=== PATIENT | female | born 1965 ===

== ENCOUNTER 2020-01-12 08:45 | Outpatient (REF) | payer OTHER, SELFPAY ==
[2020-01-12 09:21] LABS: MANUAL DIFF FLAG NO
[2020-01-12 09:25] LABS: Basophils Percent Auto 0.5 % (0-2); Hemoglobin 13.5 g/dl (12.0-16.0); Imm Gran Abs Auto 0.02 X10*3/uL (0.00-0.03); Imm Gran Pct Auto 0.3 % (0.0-0.4); Lymphocytes Absolute Auto 1.6 X10*3/uL (1.2-4.9); Lymphocytes Percent Auto 27.2 % (20-40); Mean Corpuscular HGB Conc 32.1 g/dl (31.0-35.0); Mean Corpuscular Hemoglobin 29.4 pg (27.0-33.0); Mean Corpuscular Volume 91.5 fL (80-98); Mean Platelet Volume 10.2 fL (9.4-12.3); Monocytes Absolute Auto 0.4 X10*3/uL (0.1-1.2); Monocytes Percent Auto 7.4 % (2-11); Neutrophils Absolute Auto 3.8 X10*3/uL (2.0-8.3); Neutrophils Percent Auto 64.6 % (45-73); Platelet Count 246 X10*3/uL (160-400); Red Blood Count 4.59 X10*6/uL (4.20-5.50); White Blood Count 5.9 X10*3/uL (4.8-10.8)
[2020-01-12 09:39] LABS: Estimated Average Glucose 120 mg/dL; Hemoglobin A1c % 5.8 %
[2020-01-12 09:55] LABS: Alanine Aminotransferase 25 U/L (0-31); Albumin Level 4.3 g/dL (3.5-5.0); Alkaline Phosphatase 93 U/L (39-117); Anion Gap 12 (12-20); Aspartate Amino Transferase 18 U/L (5-31); Bilirubin Total 0.4 mg/dL (0.0-1.0); Blood Urea Nitrogen 15 mg/dL (9-16); Calcium 9.3 mg/dL (8.4-10.2); Carbon Dioxide 28 mmol/L (22-29); Chloride 105 mmol/L (96-108); Cholesterol 234 mg/dL; Estimated Glomerular Filt Rate > 60; Glucose Random 99 mg/dL (60-115); HDL Cholesterol 63 mg/dL; LDL Cholesterol Calculated 152 mg/dl; Potassium 4.2 mmol/l (3.3-5.1); Sodium 141 mmol/L (135-145); Total Protein 7.7 g/dL (6.5-8.0); Triglycerides 99 mg/dL
[2020-01-12 10:19] LABS: Vitamin D 25-OH Total 24.1 ng/mL (>30)
[2020-01-12 10:32] LABS: Folate 11.7 ng/mL (> or = 4.0); Vitamin B12 445 pg/mL (200-900)
== END 2020-01-12 08:46 | disposition home or self-care (01) ==
LOC: HO.LAB 08:45
PROVIDERS: PCP Internal Medicine; Visit Provider Internal Medicine
DX: E78.00 Pure hypercholesterolemia, unspecified (principal); I10 Essential (primary) hypertension; E66.9 Obesity, unspecified; R73.01 Impaired fasting glucose; J30.9 Allergic rhinitis, unspecified
CPT/HCPCS: 36415; 80053; 80061; 82306; 82607; 82746; 83036; 84443; 85025

== ENCOUNTER 2020-04-13 08:19 | Outpatient (REF) | payer OTHER, SELFPAY ==
[2020-04-13 09:00] LABS: MANUAL DIFF FLAG NO
[2020-04-13 09:05] LABS: Basophils Percent Auto 0.4 % (0-2); Eosinophils Absolute Auto 0.1 X10*3/uL (0.0-0.4); Eosinophils Percent Auto 1.9 % (0-4); Hematocrit 41.1 % (37-47); Hemoglobin 13.3 g/dl (12.0-16.0); Imm Gran Abs Auto 0.02 X10*3/uL (0.00-0.03); Imm Gran Pct Auto 0.4 % (0.0-0.4); Lymphocytes Absolute Auto 1.7 X10*3/uL (1.2-4.9); Lymphocytes Percent Auto 29.2 % (20-40); Mean Corpuscular HGB Conc 32.4 g/dl (31.0-35.0); Mean Corpuscular Hemoglobin 29.5 pg (27.0-33.0); Mean Corpuscular Volume 91.1 fL (80-98); Mean Platelet Volume 10.7 fL (9.4-12.3); Monocytes Absolute Auto 0.4 X10*3/uL (0.1-1.2); Monocytes Percent Auto 7.7 % (2-11); Neutrophils Absolute Auto 3.5 X10*3/uL (2.0-8.3); Neutrophils Percent Auto 60.4 % (45-73); Platelet Count 240 X10*3/uL (160-400); Red Blood Count 4.51 X10*6/uL (4.20-5.50); Red Cell Distribution Width 14.1 % (11.0-16.0); White Blood Count 5.7 X10*3/uL (4.8-10.8)
[2020-04-13 09:19] LABS: Glucose Urine UA NEG (NEG); Leukocyte Esterase Urine NEG (NEG); Nitrite Urine NEG (NEG); PH 5.5 (5.0-8.0); Urine Blood 1+ (NEG); Urine Ketones NEG (NEG); Urine Protein NEG (NEG-TRACE)
[2020-04-13 09:31] LABS: Estimated Average Glucose 114 mg/dL; Hemoglobin A1c % 5.6 %
[2020-04-13 09:34] LABS: Alanine Aminotransferase 37 U/L (0-31); Albumin Level 4.3 g/dL (3.5-5.0); Alkaline Phosphatase 97 U/L (39-117); Anion Gap 11 (12-20); Aspartate Amino Transferase 27 U/L (5-31); Bilirubin Total 0.4 mg/dL (0.0-1.0); Blood Urea Nitrogen 25 mg/dL (9-16); Calcium 9.2 mg/dL (8.4-10.2); Carbon Dioxide 28 mmol/L (22-29); Chloride 105 mmol/L (96-108); Cholesterol 193 mg/dL; Estimated Glomerular Filt Rate > 60; Glucose Random 107 mg/dL (60-115); HDL Cholesterol 52 mg/dL; LDL Cholesterol Calculated 115 mg/dl; Potassium 4.2 mmol/l (3.3-5.1); Sodium 140 mmol/L (135-145); Total Protein 7.5 g/dL (6.5-8.0); Triglycerides 132 mg/dL
[2020-04-13 09:41] LABS: Appearance Urine CLEAR; Color Urine YELLOW
[2020-04-13 09:56] LABS: Free T4 (Free Thyroxine) 1.07 ng/dL (0.71-1.85); Thyroid Stimulating Hormone 0.67 uIU/mL (0.32-4.0); Vitamin D 25-OH Total 46.1 ng/mL (>30)
[2020-04-13 10:03] LABS: Squamous Epithelial Cell Urine 1+ /LPF
[2020-04-13 10:50] LABS: Folate 13.4 ng/mL (> or = 4.0); Vitamin B12 311 pg/mL (200-900)
== END 2020-04-13 08:20 | disposition home or self-care (01) ==
LOC: HO.LAB 08:19
PROVIDERS: Visit Provider Internal Medicine
DX: I10 Essential (primary) hypertension (principal); R73.01 Impaired fasting glucose; E78.00 Pure hypercholesterolemia, unspecified
CPT/HCPCS: 36415; 80053; 80061; 81001; 82306; 82607; 82746; 83036; 84439; 84443; 85025

== ENCOUNTER → 2020-06-02 08:49 | Outpatient (BNVA) | payer OTHER, SELFPAY | PROVIDERS: PCP Internal Medicine; Visit Provider Surgery | DX: L72.0 Epidermal cyst (principal) | CPT/HCPCS: 99202 ==

== ENCOUNTER 2020-06-15 13:40 | Outpatient (REF) | payer OTHER, SELFPAY ==
[2020-06-15 14:08] VITALS: BP 114/64; PULSE 83; RESP 19; TEMP 36.6; O2SAT 99; BMI 30.2
--- NOTE | 2020-06-15 18:12 | W.PM.OPN ---
Operative Note Operative Note Date of Service: 06/15/20 Narrative: Preop diagnosis: epidermal cysts, back, x 2 Postop: epidermal cysts, back x2 Procedure: Excision of epidermal cysts from the back x 2 Surgeon: Robert Renner M.D. The patient is a 54F with 2 epidermal cysts on the back. There was a 2.5 cm epidermal cyst on the left side of the back near the midline and there was a 1.5 cm epidermal cyst on the left laterally. She understood the technique of excision under local anesthesia as well as the risks, benefits and alternatives and she had given consent. She was brought to the Minor Procedure and was placed in prone position. The area of both cysts were prepped and draped in the usual sterile fashion. A surgical timeout was done. Both areas of the epidermal cysts were infltrated with Lidocaine 1%. I made a transverse incision on the skin overlying the epidermal cyst on the left using a blade 15. I then carried this down through the full thickness of the skin until I was able to see the cyst capsule. I sharply dissected the cyst capsule circumferentially using a blade 15 and Metzenbaum scissors until I was able to completely deliver this. This was sent as a specimen. The diameter was about 2.5 cm. I then made an incision on the skin overlying the smaller cyst on the right using a blade 15. This was carried down through the full thickness of the skin until the cyst capsule was visualized. I sharply dissected the cyst capsule off of the surround subcutaneous fat using scissors until this was delivered and sent as a specimen. The diameter was about 1 cm. I irrigated both excision sites. I closed both incisions with multiple nylon 3-0 interrupted sutures. Dressings were applied. The patient tolerated the procedure well. There were no complications noted. EBL was less than 5 cc.
--- NOTE | 2020-06-15 18:26 | MHC.SHP ---
Pre-Procedural Eval Section B Chief Complaint: Epidermal Cysts Allergies: Allergies Allergy/AdvReac Type Severity Reaction Status Date / Time No Known Allergies Allergy Verified 06/02/20 08:56 Plan I have reviewed the history and physical and performed a pertinent physical examination on my patient. No changes have occurred unless specified.
--- NOTE | 2020-06-15 18:26 | PM.OP ---
Brief Operative Note Date of Service: 06/15/20 Pre-op diagnosis: epidermal cysts, back x2 Post-op diagnosis: same Procedure: exc of peidermal cysts, back x 2 Surgeon: Robert Renner MD Anesthesia: local Estimated blood loss (mL): 5 Pathology: other (cysts) Condition: stable Disposition: other (home)
== END 2020-06-15 13:41 | disposition home or self-care (01) ==
LOC: HO.MS 13:40
PROVIDERS: PCP Internal Medicine; Visit Provider Surgery
PROC: (CPT 11403; principal; 2020-06-15 14:00)
DX: L72.0 Epidermal cyst (principal); I10 Essential (primary) hypertension; Z79.899 Other long term (current) drug therapy
CPT/HCPCS: 11403; 11402; 88304

== ENCOUNTER 2020-06-21 07:52 | Outpatient (REF) | payer OTHER, SELFPAY ==
--- NOTE | ~2020-06-21 | MM_ITS ---
EXAMINATION: MM SCREENING DIGITAL BREAST TOMOSYNTHESIS, BILATERAL CLINICAL INFORMATION: Screening. Asymptomatic. The lifetime risk of breast cancer based on the Tyrer-Cuzick Model is 6.2%. COMPARISON: Mammography: May 29, 2018 and studies dating back to November 20, 2011 TECHNIQUE: Digital breast tomosynthesis is performed in both the craniocaudal and mediolateral oblique views along with computer-aided detection (CAD). Synthesized 2D images are generated from the tomosynthesis. FINDINGS: There are scattered areas of fibroglandular density (ACR BI-RADS breast composition Category b). There are no significant masses, abnormal calcifications, or other abnormalities. MM/MM tomosynthesis screening BI IMPRESSION: There are no significant changes from prior study. ASSESSMENT: BI-RADS 1: Negative RECOMMENDATION: Routine annual mammography screening. This patient's information was entered into a reminder system with a target due date for their next mammogram.
== END 2020-06-21 07:53 | disposition home or self-care (01) ==
LOC: HO.MAMMO 07:52
PROVIDERS: PCP Internal Medicine; Visit Provider Internal Medicine
DX: Z12.31 Encounter for screening mammogram for malignant neoplasm of breast (principal)
CPT/HCPCS: 77063; 77067

== ENCOUNTER → 2020-06-29 09:10 | Outpatient (BNVA) | payer OTHER, SELFPAY | PROVIDERS: PCP Internal Medicine; Visit Provider Surgery | DX: L72.0 Epidermal cyst (principal) | CPT/HCPCS: 99212 ==

== ENCOUNTER → 2021-04-25 08:05 | Outpatient (BNVA) | payer OTHER, SELFPAY | PROVIDERS: PCP Internal Medicine; Visit Provider Physician Assistant | DX: Z12.11 Encounter for screening for malignant neoplasm of colon (principal); Z80.0 Family history of malignant neoplasm of digestive organs | CPT/HCPCS: 99202 ==

== ENCOUNTER 2021-06-22 08:39 | Outpatient (REF) | payer OTHER, SELFPAY ==
--- NOTE | ~2021-06-22 | MM_ITS ---
EXAMINATION: MM SCREENING DIGITAL BREAST TOMOSYNTHESIS, BILATERAL CLINICAL INFORMATION: Screening. Asymptomatic. The lifetime risk of breast cancer based on the Tyrer-Cuzick Model is 6.6%. COMPARISON: Mammography: June 21, 2020 and studies dating back to February 24, 2014 TECHNIQUE: Digital breast tomosynthesis is performed in both the craniocaudal and mediolateral oblique views along with computer-aided detection (CAD). Synthesized 2D images are generated from the tomosynthesis. FINDINGS: There are scattered areas of fibroglandular density (ACR BI-RADS breast composition Category b). There are no significant masses, abnormal calcifications, or other abnormalities. MM/MM tomosynthesis screening BI IMPRESSION: There are no significant changes from prior study. ASSESSMENT: BI-RADS 1: Negative RECOMMENDATION: Routine annual mammography screening. This patient's information was entered into a reminder system with a target due date for their next mammogram.
== END 2021-06-22 08:40 | disposition home or self-care (01) ==
LOC: HO.MAMMO 08:39
PROVIDERS: PCP Internal Medicine; Visit Provider Internal Medicine
DX: Z12.31 Encounter for screening mammogram for malignant neoplasm of breast (principal)
CPT/HCPCS: 77063; 77067

== ENCOUNTER 2021-10-17 10:30 | Day surgery (SDC) | payer OTHER, SELFPAY ==
[2021-10-11 14:08] VITALS: BMI 28.0
--- NOTE | 2021-10-17 10:38 | MHC.SHP ---
Pre-Procedural Eval Section A Date of Service: 10/17/21 Section B Chief Complaint: screening Relevant Family History (Specify if Yes): No Relevant Social History: None Present Medications: see Short Stay Collaborative assessment Medical History: Significant History (Cataracts, bilateral Hypercholesterolemia Hypertension Impaired fasting glucose Obesity (BMI 30-39.9) Tubular adenoma of colon) History of Previous Operations: Relevant previous surgery/procedure and date(s) (Hx of removal of cyst (~2019) ) Allergies: Allergies Allergy/AdvReac Type Severity Reaction Status Date / Time No Known Allergies Allergy Verified 05/18/21 09:06 Review of Systems Sugical H&P ROS: Negative: Constitution, Cardiovascular, Respiratory, Neurological, Psychiatric, Hem-Onc, Allergic/Immunologic, Gastrointestinal, Genitourinary, Musculoskeletal, Integumentary, Endocrine and Eyes/Ears/Nose/Throat Exam Surgical H&P Exam: Normal: HEENT, Normal: Heart, Normal: Lungs, Normal: Extremities, Normal: Abdomen, Normal: Skin and Normal: Neurological Plan Diagnosis/Plan: Unchanged I have reviewed the history and physical and performed a pertinent physical examination on my patient. No changes have occurred unless specified.
[2021-10-17 10:39] VITALS: BMI 27.4
[2021-10-17 10:48] VITALS: BP 125/62; PULSE 89; RESP 16; TEMP 36.2; O2SAT 98
--- NOTE | 2021-10-17 11:05 | HO.ANESPROP2 ---
HPI - Anesthesia Eval Consult details Narrative: 55 F for colonoscopy Functional status more than 4 mets, exercise for an hour . LBBB , as patient has excellent functional status and is completely asymptomatic so we will proceed . The patient understands that she may need further testing and workup. She is scheduled to see her PCP . Further workup and cardiology consult as per PCP . The patient understands and is in agreement with the plan . [facility] Active Problems Active Problems: All Active Problems (Updated 05/18/21 @ 09:21 by Trevor Whitney MD) Right ankle sprain (Acute) Encounter for screening colonoscopy (Acute) Tubular adenoma of colon (Acute) Overweight (Acute) Epidermal cyst (Acute) Annual physical exam (Acute) Impaired fasting glucose (Acute) Hypercholesterolemia (Acute) Obesity (BMI 30-39.9) (Acute) Hypertension (Acute) Past Medical History Medical History (Updated 05/18/21 @ 09:21 by Trevor Whitney MD) Cataracts, bilateral Hypercholesterolemia Hypertension Impaired fasting glucose Obesity (BMI 30-39.9) Tubular adenoma of colon Family History Family History (Updated 05/18/21 @ 09:09 by ERIKA Barcenas) Father Alive and well Mother Hypertension Family history of problems with anesthesia: No Surgical History Surgical History Hx of removal of cyst (~2019) No pertinent past surgical history History of Problems with Anesthesia: No Social History Social History Household Members Other:: Recently Housing: House Alcohol intake: current Patient Tobacco Use Status: Never used Tobacco e-Cigarette/Vaping Use: Never Used Second Hand Smoke Exposure: No service: No Current occupational status: employed Cognitive needs: No Hearing needs: No Vision needs: No Meds Allergies Allergy/AdvReac Type Severity Reaction Status Date / Time No Known Allergies Allergy Verified 05/18/21 09:06 Active Medications: Current Medications Lactated Ringer's (Lr) 1,000 mls @ 50 mls/hr IVCONT .Q20H AYLEEN Exam Exam Date and Time: October 17, 2021 1105 Height,Weight and Vital Signs: Height 5 ft 2 in Weight 68.039 kg Last Vital Signs Temp 97.2 F 10/17/21 10:48 Pulse 89 10/17/21 10:48 Resp 16 10/17/21 10:48 BP 125/62 10/17/21 10:48 Pulse Ox 98 10/17/21 10:48 O2 Del Method 10/17/21 10:48 Airway Mallampati Class: III TM Dist: >3cm Neck ROM: Full Loose/Missing/Broken Teeth: Yes (Fillings ) Heart: S1,S2 Lungs: b/l breath sounds Assessment and Plan Assessment Anesthesia Assessment: Anesthesia Plan Discussed and Chart Reviewed Final Anesthetic Review Family History of Problems with Anesthesia: No History of Problems with Anesthesia: No NPO: Yes ASA Class: II Final Preanesthetic Review: Meds/Allgs Chart Reviewed, Consent Obtained/Reviewed and Anes Risks/Benef Reviewed Patient Risk: Intermediate Procedure Risk: Intermediate Anesthetic Plan Anesthetic Plan: MAC: Disposition: Standard PACU
--- NOTE | 2021-10-17 11:06 | ECG_ITS ---
Test Reason : PREOP Blood Pressure : / mmHG Vent. Rate : 092 BPM Atrial Rate : 092 BPM P-R Int : 146 ms QRS Dur : 152 ms QT Int : 426 ms P-R-T Axes : 000 -20 140 degrees QTc Int : 526 ms Normal sinus rhythm Left bundle branch block Abnormal ECG When compared with ECG of 26-AUG-2014 21:59, Left bundle branch block is now Present Referred By: Deion Jeff Electronically Signed By:ROQUE FROST
--- NOTE | 2021-10-17 11:24 | P.OP_ITS ---
Operative Note Operative Note Date of Service: 10/17/21 Narrative: Operative Information Procedure Description: Colonoscopy Indication: hx of colon polyps Anesthesia: MAC COLONOSCOPY Instrument: Olympus variable stiffness pediatric scope 190L Colonoscopy Monitoring: Vital signs and clinical assessment, continuous EKG monitoring, Pulse oximetry, Carbon Dioxide monitoring and blood pressure monitoring were done throughout the procedure. Colon withdrawal time was 10 minutes. Procedure: The patient was placed in the left lateral decubitis position and pre-procedure medications were administered. After a digital rectal examination of the ano-rectum, the video colonoscope was inserted into the rectum and advanced through the colon to the cecum/TI. The colonoscope was slowly withdrawn in a retrograde panoramic fashion and the colon mucosa was carefully examined including a retroflexed view of the rectum. Findings and interventions are described below. Procedure Difficulty: moderate, pressure applied Findings: Terminal Ileum-normal Cecum:normal Ascending Colon: x 4 sessile polyps noted 8-10 mm in length, x2 removed with cold forceps and x 2 removed with cold snare Transverse Colon -normal Descending Colon:normal Sigmoid Colon: mild diverticulosis Rectum: Retroflexion with small internal hemorrhoids, grade I Anorectum - normal Colon preparation: [place] Bowel Preparation Scale Right colon; 2 Transverse colon: 3 Left colon; 2 (0 = Unprepared colon segment with mucosa not seen due to solid stool that cannot be cleared. 1 = Portion of mucosa of the colon segment seen, but other areas of the colon segment not well seen due to staining, residual stool and/or opaque liquid. 2 = Minor amount of residual staining, small fragments of stool and/or opaque liquid, but mucosa of colon segment seen well. 3 = Entire mucosa of colon segment seen well with no residual staining, small fragments of stool or opaque liquid) Impression and Post Procedure Diagnosis: polyps internal hemorrhoids diverticular disease Plan: High fiber diet leaflet Avoid straining at stool, epsom salts and sitz bath, anusol supps or cream Repeat Colonoscopy in 3-4 years or earlier if clinically indicated Above findings were reviewed with the patient and relevant handouts were provided if indicated.
[2021-10-17] MEDS: Lactated Ringers 1,000 ML 50 ML IVCONT (11:36)
[2021-10-17 12:29] VITALS: BP 78/48; PULSE 71; RESP 14; TEMP 36.1; O2SAT 96
[2021-10-17 12:34] VITALS: BP 89/56; PULSE 62; RESP 14; O2SAT 97
[2021-10-17 12:39] VITALS: BP 90/54; PULSE 58; RESP 14; O2SAT 98
[2021-10-17 12:44] VITALS: BP 98/52; PULSE 67; RESP 16; O2SAT 99
[2021-10-17 12:59] VITALS: BP 100/59; PULSE 66; RESP 16; TEMP 36.3; O2SAT 99
== END 2021-10-17 13:36 | disposition home or self-care (01) ==
PROVIDERS: PCP Internal Medicine; Visit Provider Internal Medicine Gastroenterology
PROC: 0DJD8ZZ Inspection of Lower Intestinal Tract, Via Natural or Artificial Opening Endoscopic (ICD-10-PCS; CPT 45378; principal; 2021-10-17 11:50)
DX: Z12.11 Encounter for screening for malignant neoplasm of colon (principal); Z86.010 Personal history of colon polyps; D12.2 Benign neoplasm of ascending colon; K57.30 Diverticulosis of large intestine without perforation or abscess without bleeding; K64.0 First degree hemorrhoids; F43.23 Adjustment disorder with mixed anxiety and depressed mood; R63.4 Abnormal weight loss; R63.0 Anorexia; Z68.28 Body mass index [BMI] 28.0-28.9, adult; E78.00 Pure hypercholesterolemia, unspecified; I10 Essential (primary) hypertension; R73.01 Impaired fasting glucose; Z79.899 Other long term (current) drug therapy
CPT/HCPCS: 45385; 45380; 88305; 93005

== ENCOUNTER → 2021-10-31 09:54 | Outpatient (BNVA) | payer OTHER, SELFPAY | PROVIDERS: PCP Internal Medicine; Visit Provider Physician Assistant | DX: D12.2 Benign neoplasm of ascending colon (principal); K57.30 Diverticulosis of large intestine without perforation or abscess without bleeding; K64.8 Other hemorrhoids; Z98.890 Other specified postprocedural states | CPT/HCPCS: 99212 ==

== ENCOUNTER → 2021-12-06 09:22 | Outpatient (REF) | payer OTHER, SELFPAY ==
[2021-12-06 09:48] LABS: MANUAL DIFF FLAG NO
[2021-12-06 10:11] LABS: Basophils Percent Auto 0.4 % (0-2); Hematocrit 43.5 % (37.0-47.0); Hemoglobin 14.4 g/dl (12.0-16.0); Imm Gran Abs Auto 0.01 X10*3/uL (0.00-0.03); Imm Gran Pct Auto 0.2 % (0.0-0.4); Lymphocytes Absolute Auto 1.3 X10*3/uL (1.2-4.9); Lymphocytes Percent Auto 26.1 % (20-40); Mean Corpuscular HGB Conc 33.1 g/dl (31.0-35.0); Mean Corpuscular Hemoglobin 30.1 pg (27.0-33.0); Mean Platelet Volume 10.4 fL (9.4-12.3); Monocytes Absolute Auto 0.4 X10*3/uL (0.1-1.2); Monocytes Percent Auto 7.7 % (2-11); Neutrophils Absolute Auto 3.2 x10*3/uL (2.0-8.3); Neutrophils Percent Auto 65.6 % (45-73); Platelet Count 235 X10*3/uL (160-400); Red Blood Count 4.78 X10*6/uL (4.20-5.50); Red Cell Distribution Width 13.8 % (11.0-16.0); White Blood Count 4.9 X10*3/uL (4.8-10.8)
--- NOTE | 2021-12-06 10:28 | CA_ITS ---
Transthoracic Echocardiogram Patient (Last, First, Middle): Arely Sethi D Gender: Female Date of : 1965 Age: 56 Procedure Date: 12/06/2021 Procedure Type: Transthoracic Echocardiogram Location: OP Height: 157.48 cm Weight: 70.31 kg BSA: 1.72 m2 Heart Rate: bpm BP: 114 / 65 mmHg Development Architect: TO Referring MD: Yuriy Mcneal MD Flight Operations Coordinator: Inderjit Hdez MD Symptoms: I44.7 - Left bundle-branch block, unspecified Study Quality: Adequate/Contrast ECG Rhythm: Sinus Conclusions: - 1. Severe LV systolic dysfunction will in a mildly dilated left ventricle with LVEF of 25-30% with grade 1 diastolic dysfunction 2. Normal cardiac valvular Doppler 3. Normal RV systolic pressure 4. No gross pericardial effusion Findings Procedure Information Contrast agent, definity, is being given per protocol without apparent complications. Left Ventricle Mildly increased left ventricular cavity size. There is normal left ventricular wall thickness. The left ventricular systolic function is severely decreased. The visually estimated ejection fraction is between 25 30%. There is paradoxical septal motion consistent with a left bundle branch block. Spectral Doppler is indicative of an impaired relaxation filling pattern. E/E prime ratio is <8, consistent with normal filling pressures. Evidence suggests grade I (mild) diastolic dysfunction. Right Ventricle Normal right ventricular cavity size and systolic function. Atria The left atrium is normal in size. There is no evidence of interatrial shunt. The right atrium is normal in size. Aortic Valve Normal aortic valve structure and function. There is no aortic valve stenosis. There is no aortic valve regurgitation. Mitral Valve There is mild anterior and posterior mitral leaflet thickening. There is trace mitral valve regurgitation. There is no mitral valve stenosis. Pulmonic Valve The pulmonic valve was not well visualized. Tricuspid Valve Normal tricuspid valve structure. There is trace tricuspid valve regurgitation. The right ventricular systolic pressure is normal. The right ventricular systolic pressure is 21 mmHg. Normal right atrial pressure. There is no evidence of pulmonary hypertension. Great Vessels All visible segments of the aorta are normal in size. The pulmonary artery was not well visualized. Venous The inferior vena cava is normal in size and collapses greater than 50% with inspiration. Pericardium/Pleural There is no evidence of pericardial effusion. Prior Study Comparison No prior study available for comparison. Measurements 2D Linear Measurements IVSd: 0.66 0.6-0.9/0.6-1.0 cm LVIDd: 5.92 3.9-5.3/4.2-5.9 cm LVIDd Index: 3.44 2.4-3.2/2.2-3.1 cm/m2 LVIDs: 5.05 2.0-3.6 cm LVPWd: 0.71 0.7-1.1 cm LA Diam: 3.70 2.7-3.8/3.0-4.0 cm LAIDs Index: 2.15 1.5-2.3 cm/m2 LV Mass: 186.65 67-162/88-224 g LV Mass Index: 108.52 43-95/49-115 g/m2 LVOT Diam: 2.00 3.0+(-)1.3 cm 2D Systolic Function EF 4C: 26.20 >55% EF 2C: 27.80 >55% EF BiP: 27.40 >55% Mitral Valve MV Pk E: 0.51 MV PK A: 0.98 MV Decel Time: 187.00 E/A: 0.50 E'Lateral: 6.74 E'Medial: 3.48 E/E' Med: 14.70 E/E' Lat: 7.60 PHT: 55.00 MVA PHT: 4.00 Decel Mccormick: 2.72 Aortic Valve AoV Pk Regulo: 1.22 AoV Mn Regulo: 0.81 AoV VTI: 0.20 AoV Pk Grad: 6.00 Aov Mn Grad: 3.00 VALORIE Cont.VTI: 1.92 LVOT LVOT Pk Regulo: 0.76 LVOT Mn Regulo: 0.43 LVOT VTI: 0.12 LVOT Pk Grad: 2.00 LVOT Mn Grad: 1.00 LVOT Diam: 2.00 LVOT Area: 3.14 Diastolic Function MV Pk E: 0.51 MV Pk A: 0.98 E/A: 0.50 E'Medial: 3.48 E/E' Med: 14.70 E' Laterial: 6.74 E/E' Lat: 7.60 Right Ventricle TAPSE (mm): 24.30 TVS' Regulo: 11.70 Tricuspid Valve TR Pk Regulo: 2.14 TR Pk Grad: 18.00 RA Press: 3.00 RVSP: 21.00 Great Vessels Aorta Sinus of Valsalva: 3.59 2.0-3.5 cm Ao Asc: 3.60 2.1-3.4 cm Updated in Other Vendor System with Status of Final Inderjit Hdez MD electronically signed on 12/06/2021 3:35:11 PM with status of Final
[2021-12-06 10:31] LABS: Estimated Average Glucose 108 mg/dL; Hemoglobin A1c % 5.4 %; Total Hemoglobin (HGBA1C) 3810.3569 umol/L
[2021-12-06 10:41] LABS: Alanine Aminotransferase 30 U/L (0-31); Albumin Level 4.4 g/dL (3.5-5.0); Alkaline Phosphatase 92 U/L (39-117); Anion Gap 15 (12-20); Aspartate Amino Transferase 21 U/L (5-31); Bilirubin Total 0.4 mg/dL (0.0-1.0); Blood Urea Nitrogen 20 mg/dL (9-16); Calcium 9.8 mg/dL (8.4-10.2); Carbon Dioxide 26 mmol/L (22-29); Chloride 105 mmol/L (96-108); Cholesterol 258 mg/dL; Estimated Glomerular Filt Rate > 60; Glucose Random 111 mg/dL (60-115); HDL Cholesterol 64 mg/dL; LDL Cholesterol Calculated 177 mg/dl; Potassium 4.2 mmol/L (3.3-5.1); Sodium 142 mmol/L (135-145); Total Protein 7.9 g/dL (6.5-8.0); Triglycerides 86 mg/dL
[2021-12-06 10:55] LABS: Free T4 (Free Thyroxine) 1.11 ng/dL (0.71-1.85); Thyroid Stimulating Hormone 0.85 uIU/mL (0.32-4.0); Vitamin D 25-OH Total 43.2 ng/mL (>30)
[2021-12-06 11:14] LABS: Folate 15.6 ng/mL (> or = 4.0); Vitamin B12 458 pg/mL (200-900)
== END ==
LOC: HO.CARD 09:22
PROVIDERS: PCP Internal Medicine; Visit Provider Internal Medicine
DX: R73.01 Impaired fasting glucose (principal); E78.00 Pure hypercholesterolemia, unspecified; I10 Essential (primary) hypertension; I44.7 Left bundle-branch block, unspecified
CPT/HCPCS: 36415; 80053; 80061; 82306; 82607; 82746; 83036; 84439; 84443; 85025; 93306; Q9957

== ENCOUNTER → 2021-12-08 08:23 | Outpatient (BNVA) | payer OTHER, SELFPAY | PROVIDERS: PCP Internal Medicine; Visit Provider Internal Medicine Cardiovascular Disease | DX: I42.9 Cardiomyopathy, unspecified (principal) | CPT/HCPCS: 99202 ==

== ENCOUNTER 2021-12-13 10:06 | Outpatient (REF) | payer OTHER, SELFPAY ==
[2021-12-13 11:12] LABS: Anion Gap 13 (12-20); Blood Urea Nitrogen 17 mg/dL (9-16); Calcium 9.1 mg/dL (8.4-10.2); Carbon Dioxide 25 mmol/L (22-29); Chloride 106 mmol/L (96-108); Estimated Glomerular Filt Rate > 60; Glucose Random 107 mg/dL (60-115); Potassium 4.4 mmol/L (3.3-5.1); Sodium 140 mmol/L (135-145)
[2021-12-13 11:30] LABS: B Type Natriuretic Peptide 140 pg/mL (<100)
[2021-12-13 11:33] LABS: HIV AB/AG Nonreactive (Nonreactive); HIV Num 1 0.05 S/CO (0.00-0.99)
== END 2021-12-13 10:07 | disposition home or self-care (01) ==
LOC: HO.LAB 10:06
PROVIDERS: PCP Internal Medicine; Visit Provider Internal Medicine Cardiovascular Disease
DX: I42.9 Cardiomyopathy, unspecified (principal)
CPT/HCPCS: 36415; 80048; 83880; 87389

== ENCOUNTER 2022-01-17 08:40 | Outpatient (REF) | payer OTHER, SELFPAY ==
[2022-01-17 10:54] LABS: Anion Gap 17 (12-20); Blood Urea Nitrogen 20 mg/dL (9-16); Calcium 9.6 mg/dL (8.4-10.2); Carbon Dioxide 22 mmol/L (22-29); Chloride 107 mmol/L (96-108); Estimated Glomerular Filt Rate > 60; Glucose Random 102 mg/dL (60-115); Potassium 4.6 mmol/L (3.3-5.1); Sodium 141 mmol/L (135-145)
== END 2022-01-17 08:41 | disposition home or self-care (01) ==
LOC: HO.LAB 08:40
PROVIDERS: PCP Internal Medicine; Visit Provider Internal Medicine Cardiovascular Disease
DX: I42.9 Cardiomyopathy, unspecified (principal); I44.7 Left bundle-branch block, unspecified
CPT/HCPCS: 36415; 80048

== ENCOUNTER → 2022-02-26 09:11 | Outpatient (REF) | payer OTHER, SELFPAY ==
--- NOTE | 2022-02-26 09:14 | CA_ITS ---
Transthoracic Echocardiogram Patient (Last, First, Middle): Arely Sethi D Gender: Female Date of : 1965 Age: 56 Procedure Date: 02/26/2022 Procedure Type: Transthoracic Echocardiogram Location: OP Height: 157.48 cm Weight: 68.04 kg BSA: 1.69 m2 Heart Rate: bpm BP: 114 / 76 mmHg Carton Machine Operator: DAVIS Referring MD: Inderjit Hdez MD Air Pollution Control Engineer: Inderjit Hdez MD Symptoms: I42.9 - Cardiomyopathy, unspecified Study Quality: Fair, contrast used ECG Rhythm: Sinus Conclusions: - Moderately dilated left ventricle with severely reduced LV ejection fraction of 20-25% Findings Procedure Information Contrast agent, definity, is being given per protocol without apparent complications. Left Ventricle Moderately increased left ventricular cavity size. There is normal left ventricular wall thickness. The left ventricular systolic function is severely decreased. The visually estimated ejection fraction is between 20 25%. Peak GLS is -10.6%, which is reduced. Prior Study Comparison Changes noted compared to prior study dated: 12/06/2021. LV systolic function is 20-25%, marginally reduced Measurements 2D Linear Measurements IVSd: 0.65 0.6-0.9/0.6-1.0 cm LVIDd: 6.24 3.9-5.3/4.2-5.9 cm LVIDd Index: 3.69 2.4-3.2/2.2-3.1 cm/m2 LVIDs: 5.42 2.0-3.6 cm LVPWd: 1.00 0.7-1.1 cm LV Mass: 257.54 67-162/88-224 g LV Mass Index: 152.39 43-95/49-115 g/m2 LVOT Diam: 2.00 3.0+(-)1.3 cm 2D Systolic Function EF 4C: 22.50 >55% EF 2C: 26.70 >55% EF BiP: 24.20 >55% LVOT LVOT Pk Regulo: 0.71 LVOT Mn Regulo: 0.49 LVOT VTI: 0.15 LVOT Pk Grad: 2.00 LVOT Mn Grad: 1.00 LVOT Diam: 2.00 LVOT Area: 3.14 Updated in Other Vendor System with Status of Final Inderjit Hdez MD electronically signed on 03/02/2022 2:57:20 PM with status of Final
== END ==
LOC: HO.CARD 09:11
PROVIDERS: PCP Internal Medicine; Visit Provider Internal Medicine Cardiovascular Disease
DX: I42.9 Cardiomyopathy, unspecified (principal)
CPT/HCPCS: 93308; 93356; Q9957

== ENCOUNTER 2022-02-28 08:07 | Outpatient (REF) | payer OTHER, SELFPAY ==
[2022-02-28 09:02] LABS: Estimated Average Glucose 114 mg/dL; Hemoglobin A1c % 5.6 %
[2022-02-28 09:28] LABS: Alanine Aminotransferase 44 U/L (0-31); Albumin Level 4.1 g/dL (3.5-5.0); Alkaline Phosphatase 92 U/L (39-117); Anion Gap 12 (12-20); Aspartate Amino Transferase 25 U/L (5-31); Bilirubin Total 0.5 mg/dL (0.0-1.0); Blood Urea Nitrogen 16 mg/dL (9-16); Calcium 9.3 mg/dL (8.4-10.2); Carbon Dioxide 26 mmol/L (22-29); Chloride 107 mmol/L (96-108); Cholesterol 209 mg/dL; Estimated Glomerular Filt Rate > 60; Glucose Random 98 mg/dL (60-115); HDL Cholesterol 59 mg/dL; LDL Cholesterol Calculated 138 mg/dl; Potassium 4.8 mmol/L (3.3-5.1); Sodium 140 mmol/L (135-145); Triglycerides 64 mg/dL
== END 2022-02-28 08:08 | disposition home or self-care (01) ==
LOC: HO.LAB 08:07
PROVIDERS: PCP Internal Medicine; Visit Provider Internal Medicine
DX: E78.00 Pure hypercholesterolemia, unspecified (principal); R73.01 Impaired fasting glucose
CPT/HCPCS: 36415; 80053; 80061; 83036

== ENCOUNTER → 2022-03-08 09:13 | Outpatient (BNVA) | payer OTHER, SELFPAY | PROVIDERS: PCP Internal Medicine; Referring Provider Internal Medicine; Visit Provider Internal Medicine Cardiovascular Disease | DX: I42.8 Other cardiomyopathies (principal) | CPT/HCPCS: 99212 ==

== ENCOUNTER 2022-06-28 09:56 | Outpatient (REF) | payer OTHER, SELFPAY | END 2022-06-28 09:57 | disposition home or self-care (01) | LOC: HO.MAMMO 09:56 | PROVIDERS: PCP Internal Medicine; Visit Provider Internal Medicine | DX: Z13.89 Encounter for screening for other disorder (principal) ==

== ENCOUNTER → 2022-07-18 09:16 | Outpatient (BNVA) | payer OTHER, SELFPAY | PROVIDERS: PCP Internal Medicine; Referring Provider Internal Medicine; Visit Provider Internal Medicine Cardiovascular Disease | DX: Z45.02 Encounter for adjustment and management of automatic implantable cardiac defibrillator (principal); I42.8 Other cardiomyopathies | CPT/HCPCS: 99212 ==

== ENCOUNTER → 2022-07-31 07:55 | Outpatient (REF) | payer OTHER, SELFPAY ==
--- NOTE | 2022-07-31 07:58 | CA_ITS ---
Transthoracic Echocardiogram Patient (Last, First, Middle): Arely Stehi D Gender: Female Date of : 1965 Age: 56 Procedure Date: 07/31/2022 Procedure Type: Transthoracic Echocardiogram Location: OP Height: 157.48 cm Weight: 68.04 kg BSA: 1.69 m2 Heart Rate: bpm BP: 122 / 65 mmHg Sorting Machine Operator: DAVIS Referring MD: Inderjit Hdez MD Symptoms: I42.8 - Other cardiomyopathies Study Quality: Adequate with contrast ECG Rhythm: Sinus Conclusions: - The left ventricular systolic function is severely decreased. The visually estimated ejection fraction is between 20-25%. Findings Procedure Information Contrast agent, definity, is being given per protocol without apparent complications. Left Ventricle Mildly increased left ventricular cavity size. The left ventricular systolic function is severely decreased. The visually estimated ejection fraction is between 20-25%. There is severe global hypokinesis. Strain measurement does not appear reliable. Wall Motion Rest Echo Findings The inferoseptal wall is akinetic. Venous The inferior vena cava is normal in size and collapses greater than 50% with inspiration. Prior Study Comparison No significant change compared to prior study dated: 02/26/2022. Measurements 2D Linear Measurements IVSd: 0.62 0.6-0.9/0.6-1.0 cm LVIDd: 5.48 3.9-5.3/4.2-5.9 cm LVIDd Index: 3.24 2.4-3.2/2.2-3.1 cm/m2 LVIDs: 5.11 2.0-3.6 cm LVPWd: 0.92 0.7-1.1 cm LV Mass: 188.48 67-162/88-224 g LV Mass Index: 111.53 43-95/49-115 g/m2 LVOT Diam: 2.00 3.0+(-)1.3 cm 2D Systolic Function EF 4C: 27.90 >55% EF 2C: 43.00 >55% EF BiP: 35.50 >55% Mitral Valve MV Pk E: 0.51 MV PK A: 0.88 MV Decel Time: 293.00 E/A: 0.60 E'Lateral: 5.77 E'Medial: 4.79 E/E' Med: 10.60 E/E' Lat: 8.80 PHT: 86.00 MVA PHT: 2.56 [place]: 1.73 LVOT LVOT Pk Regulo: 0.87 LVOT Mn Regulo: 0.55 LVOT VTI: 0.19 LVOT Pk Grad: 3.00 LVOT Mn Grad: 2.00 LVOT Diam: 2.00 LVOT Area: 3.14 Diastolic Function MV Pk E: 0.51 MV Pk A: 0.88 E/A: 0.60 E'Medial: 4.79 E/E' Med: 10.60 E' Laterial: 5.77 E/E' Lat: 8.80 Tricuspid Valve RA Press: 3.00 Updated in Other Vendor System with Status of Final Cuco Reyez MD electronically signed on 08/01/2022 3:50:48 PM with status of Final
== END ==
LOC: HO.CARD 07:55
PROVIDERS: PCP Internal Medicine; Visit Provider Internal Medicine Cardiovascular Disease
DX: I42.8 Other cardiomyopathies (principal)
CPT/HCPCS: 93308; Q9957

== ENCOUNTER 2022-08-21 07:47 | Outpatient (REF) | payer OTHER, SELFPAY ==
[2022-08-21 08:03] LABS: MANUAL DIFF FLAG NO
[2022-08-21 08:21] LABS: Basophils Percent Auto 0.6 % (0-2); Eosinophils Absolute Auto 0.1 X10*3/uL (0.0-0.4); Eosinophils Percent Auto 1.2 % (0-4); Hematocrit 43.1 % (37.0-47.0); Imm Gran Abs Auto 0.01 X10*3/uL (0.00-0.03); Imm Gran Pct Auto 0.2 % (0.0-0.4); Lymphocytes Absolute Auto 1.6 X10*3/uL (1.2-4.9); Lymphocytes Percent Auto 31.1 % (20-40); Mean Corpuscular HGB Conc 32.5 g/dl (31.0-35.0); Mean Corpuscular Hemoglobin 30.2 pg (27.0-33.0); Mean Corpuscular Volume 93.1 fL (80.0-98.0); Mean Platelet Volume 10.5 fL (9.4-12.3); Monocytes Absolute Auto 0.4 X10*3/uL (0.1-1.2); Monocytes Percent Auto 8.4 % (2-11); Neutrophils Absolute Auto 2.9 x10*3/uL (2.0-8.3); Neutrophils Percent Auto 58.5 % (45-73); Platelet Count 174 X10*3/uL (160-400); Red Blood Count 4.63 X10*6/uL (4.20-5.50); Red Cell Distribution Width 13.5 % (11.0-16.0)
[2022-08-21 09:28] LABS: Alanine Aminotransferase 42 U/L (0-31); Alkaline Phosphatase 98 U/L (39-117); Anion Gap 12 (12-20); Aspartate Amino Transferase 28 U/L (5-31); Bilirubin Total 0.5 mg/dL (0.0-1.0); Blood Urea Nitrogen 17 mg/dL (9-16); Calcium 9.6 mg/dL (8.4-10.2); Carbon Dioxide 24 mmol/L (22-29); Chloride 110 mmol/L (96-108); Cholesterol 232 mg/dL; Estimated Glomerular Filt Rate > 60; Glucose Random 101 mg/dL (60-115); HDL Cholesterol 60 mg/dL; LDL Cholesterol Calculated 155 mg/dl; Potassium 4.9 mmol/L (3.3-5.1); Sodium 141 mmol/L (135-145); Total Protein 7.3 g/dL (6.5-8.0); Triglycerides 86 mg/dL
[2022-08-21 10:01] LABS: Folate 13.1 ng/mL (> or = 4.0); Free T4 (Free Thyroxine) 1.02 ng/dL (0.71-1.85); Vitamin B12 445 pg/mL (200-900)
== END 2022-08-21 07:48 | disposition home or self-care (01) ==
LOC: HO.LAB 07:47
PROVIDERS: PCP Internal Medicine; Visit Provider Internal Medicine
DX: E78.00 Pure hypercholesterolemia, unspecified (principal)
CPT/HCPCS: 36415; 80053; 80061; 82607; 82746; 84439; 84443; 85025

== ENCOUNTER 2022-09-08 07:30 | Outpatient (REF) | payer OTHER, SELFPAY ==
--- NOTE | ~2022-09-08 | MM_ITS ---
EXAMINATION: MM SCREENING DIGITAL BREAST TOMOSYNTHESIS, BILATERAL CLINICAL INFORMATION: Screening. Asymptomatic. The lifetime risk of breast cancer based on the Tyrer-Cuzick Model is 6%. COMPARISON: Mammography: 06/22/2021, 06/21/2020, 05/29/2018, 05/28/2017 TECHNIQUE: Digital breast tomosynthesis is performed in both the craniocaudal and mediolateral oblique views along with computer-aided detection (CAD). Synthesized 2D images are generated from the tomosynthesis. Additional left MLO view is provided. FINDINGS: There are scattered areas of fibroglandular density (ACR BI-RADS breast composition Category b). Parenchymal pattern is similar to prior studies. There are stable asymmetries central left breast on CC view similar to from prior exams. Neither breast shows developing density or interval significant mass or architectural abnormality. No abnormal calcifications. There is a pacemaker generator overlying and partly obscuring left axilla on MLO view. The skin contours are smooth. MM/MM tomosynthesis screening BI IMPRESSION: -No mammographic evidence of malignancy. -No significant changes from prior studies. ASSESSMENT: BI-RADS 2: Benign RECOMMENDATION: Routine annual mammography screening. This patient's information was entered into a reminder system with a target due date for their next mammogram.
== END 2022-09-08 07:31 | disposition home or self-care (01) ==
LOC: HO.MAMMO 07:30
PROVIDERS: PCP Internal Medicine; Visit Provider Internal Medicine
DX: Z12.31 Encounter for screening mammogram for malignant neoplasm of breast (principal)
CPT/HCPCS: 77063; 77067

== ENCOUNTER 2022-12-17 07:30 | Outpatient (REF) | payer OTHER, SELFPAY ==
[2022-12-17 08:18] LABS: Estimated Average Glucose 111 mg/dL; Hemoglobin A1c % 5.5 % (<6.0)
[2022-12-17 08:21] LABS: B Type Natriuretic Peptide 22 pg/mL (<100)
[2022-12-17 08:27] LABS: Alanine Aminotransferase 51 U/L (0-31); Albumin Level 4.1 g/dL (3.5-5.0); Alkaline Phosphatase 93 U/L (39-117); Anion Gap 15 (12-20); Aspartate Amino Transferase 33 U/L (5-31); Bilirubin Total 0.5 mg/dL (0.0-1.0); Blood Urea Nitrogen 13 mg/dL (9-16); Calcium 9.3 mg/dL (8.4-10.2); Carbon Dioxide 24 mmol/L (22-29); Chloride 108 mmol/L (96-108); Cholesterol 164 mg/dL (<200); Estimated Glomerular Filt Rate > 60; Glucose Random 107 mg/dL (60-115); HDL Cholesterol 45 mg/dL (>40); LDL Cholesterol Calculated 101 mg/dL (<100); Potassium 4.6 mmol/L (3.3-5.1); Sodium 142 mmol/L (135-145); Total Protein 7.7 g/dL (6.5-8.0); Triglycerides 91 mg/dL (<150)
== END 2022-12-17 07:31 | disposition home or self-care (01) ==
LOC: HO.LAB 07:30
PROVIDERS: PCP Internal Medicine; Visit Provider Internal Medicine
DX: I42.8 Other cardiomyopathies (principal); E78.00 Pure hypercholesterolemia, unspecified; R73.01 Impaired fasting glucose
CPT/HCPCS: 36415; 80053; 80061; 83036; 83880

== ENCOUNTER 2022-12-18 08:19 | Outpatient (AMB) | payer OTHER, SELFPAY ==
[2022-12-18 08:23] VITALS: BP 128/78; PULSE 77; O2SAT 98; BMI 27.4
--- NOTE | 2022-12-18 08:23 | MHC.PC.OV ---
Vital Signs 12/18/22 08:23 Height 5 ft 2 in Weight 150 lb BMI 27.4 BP 128/78 Blood Pressure Location Lt brachial Position Sitting Pulse 77 Pulse Source Pulse Oximeter Pulse Oximetry (%) 98 Oxygen Delivery Method Room Air Intake Visit Reasons: Cholesterol, cardiomyopathy Allergies No Known Allergies Allergy (Verified 12/18/22 08:23) Tobacco use date assessed: 05/22/22 Dental Screening Dental Screen Date: 12/18/22 Did you have a dental visit in the last 12 months?: Yes Did you have a dental problem in the last 6 months where you did not have access to dental care?: No Was dental information given to patient?: Patient has dentist HPI Cholesterol, cardiomyopathy HPI Details 57-year-old overweight female with nonischemic cardiomyopathy having a biventricular ICD placed, impaired glucose tolerance hypercholesterolemia hypertension coming in for follow-up. Last seen in August 2022. Patient is up-to-date with mammogram and colonoscopy. Patient is here for follow-up [facility] Medical History (Updated 12/18/22 @ 08:40 by Yuriy Mcneal MD) Biventricular ICD (implantable cardioverter-defibrillator) in place Cardiomyopathy Encounter for screening colonoscopy Tubular adenoma of colon Cataracts, bilateral Impaired fasting glucose Hypercholesterolemia Hypertension Surgical History Hx of colonoscopy Hx of removal of cyst (~2019) No pertinent past surgical history Family History Father Alive and well Mother Hypertension Social History Household Members Other:: Recently Housing: House Alcohol intake: current Patient Tobacco Use Status: Never used Tobacco e-Cigarette/Vaping Use: Never Used Second Hand Smoke Exposure: No service: No Current occupational status: employed Cognitive needs: No Hearing needs: No Vision needs: No Questionnaire PHQ-9 Over the last 2 weeks, how often have you been bothered by any of the following problems? 1. Little interest or pleasure in doing things: not at all 2. Feeling down, depressed, or hopeless: not at all 3. Trouble falling or staying asleep, or sleeping too much: not at all 4. Feeling tired or having little energy: not at all 5. Poor appetite or overeating: not at all 6. Feeling bad about yourself - or that you are a failure or have let yourself or your family down: not at all 7. Trouble concentrating on things, such as reading the newspaper or watching television: not at all 8. Moving or speaking so slowly that other people could have noticed. Or the opposite - being so fidgety or restless that you have been moving around a lot more than usual: not at all 9. Thoughts that you would be better off or of hurting yourself in some way: not at all Total score: 0 Depression Screening Interpretation: Negative Source: Developed by Drs. Eusebio Bhandari, Emelia Summers, Jabari Onofre and colleagues, with an educational damir from [employer]. Thrive Questionnaire Date Thrive assessed: 05/22/22 AUDIT C Alcohol Use Questionnaire (AUDIT-C) 1. How often do you have a drink containing alcohol?: Never Total Score: 0 VIVIANA-7 AMB Questionnaire VIVIANA-7 Date VIVIANA - 7 assessed: 05/22/22 Source: Developed by Drs. Eusebio Bhandari, Emelia Summers, Jabari Onofre and colleagues, with an educational damir from [employer]. Physical exam (Primary Care) Vital Signs: Last Vital Signs Pulse 77 12/18/22 08:23 BP 128/78 12/18/22 08:23 Pulse Ox 98 12/18/22 08:23 Oxygen Delivery Method Room Air 12/18/22 08:23 BMI result Body Mass Index 27.4 Tobacco/Smoking Status: Tobacco use Status Tobacco use date assessed 05/22/22 12/18/22 08:27 Patient Tobacco Use Status Never used Tobacco 12/18/22 08:27 Tobacco use type 01/19/21 11:03 e-Cigarette/Vaping Use Never Used 12/18/22 08:27 PHQ-9: PHQ-9 Score PHQ-9: Total score 0 12/18/22 18:29 Depression Screening Interpretation: Negative Thrive Assessment: Date of Thrive Assessment Date Thrive assessed 05/22/22 12/18/22 08:27 Const General: alert; No acute distress Eyes Conjunctivae: conjunctivae normal Resp Auscultation: clear to auscultation bilaterally Cardio Rate: regular rate Rhythm: regular rhythm GI Inspection: Yes normal to inspection Extrem General: Yes normal to inspection and No edema Assessment and Plan Assessment & Plan (1) Nonischemic cardiomyopathy: Comment: 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 The visually estimated ejection fraction is between 20-25%. (2) Biventricular ICD (implantable cardioverter-defibrillator) in place: Comment: [facility], implanted March 2022 Code(s): Z95.810 - Presence of automatic (implantable) cardiac defibrillator (3) Overweight (BMI 25.0-29.9): Code(s): E66.3 - Overweight Plan: Diet and exercise, (4) Impaired fasting glucose: Code(s): R73.01 - Impaired fasting glucose Plan: Decrease the amount of carbohydrate intake, pasta, bread, rice and potatoes are all sugar and that is aside from all the sweet stuff, remember that fruits are good but they are Sweet also. (5) Hypercholesterolemia: Code(s): E78.00 - Pure hypercholesterolemia, unspecified Plan: Avoid fried foods, chicken skin, eggs, butter margarine, pastries and meat. Be it pork or beef they have a lot of cholesterol LDL goal of less than 100 and triglyceride of less than 150 patient takes atorvastatin 40 mg once a day (6) Hypertension: Code(s): I10 - Essential (primary) hypertension Qualifiers: Hypertension type: essential hypertension Qualified Code(s): I10 - Essential (primary) hypertension Plan: Continue with carvedilol 12.5 mg p.o. twice a day and Entresto twice a day. Continue with blood pressure medication. Decrease salt intake and exercise (7) COVID-19 virus infection: Comment: December 11, 2022 Code(s): U07.1 - COVID-19 Coding Level of Care Code Est Pt Level 4 (70661) Diagnoses Nonischemic cardiomyopathy I42.8 Biventricular ICD (implantable cardioverter-defibrillator) in place Z95.810 Overweight (BMI 25.0-29.9) E66.3 Impaired fasting glucose R73.01 Hypercholesterolemia E78.00 Essential hypertension I10 Hypertension type: essential hypertension COVID-19 virus infection U07.1
== END 2022-12-18 09:52 | disposition home or self-care (01) ==
PROVIDERS: PCP Internal Medicine; Visit Provider Internal Medicine
DX: I42.8 Other cardiomyopathies (principal); I10 Essential (primary) hypertension; Z95.810 Presence of automatic (implantable) cardiac defibrillator; E66.3 Overweight; U07.1 COVID-19; Z68.27 Body mass index [BMI] 27.0-27.9, adult; R73.01 Impaired fasting glucose; E78.00 Pure hypercholesterolemia, unspecified
CPT/HCPCS: 99214

== ENCOUNTER 2023-01-01 12:06 | Outpatient (AMB) | payer OTHER, SELFPAY ==
--- NOTE | 2023-01-01 13:59 | MHC.OFFWIV ---
Intake Vital Signs 01/01/23 14:07 Weight 152 lb 8 oz BP 120/70 Blood Pressure Location Lt brachial Position Sitting Pulse 78 Pulse Source Pulse Oximeter Pulse Oximetry (%) 96 Oxygen Delivery Method Room Air Intake Visit Reasons: EP, cyst lower back [phone] Intake Note: Patient here for cyst on upper back that has been present for some time and has had it drained twice in the past. Patient Tobacco Use Status: Never used Tobacco Allergies No Known Allergies Allergy (Verified 01/01/23 14:00) Do you need a note to return to daycare/school/sports/work: No HPI EP, cyst lower back [phone] HPI Details 57-year-old female has a weeping lesion on her back that she would like examined. [facility] Medical History (Updated 12/18/22 @ 08:40 by Yuriy Mcneal MD) Biventricular ICD (implantable cardioverter-defibrillator) in place Cardiomyopathy Encounter for screening colonoscopy Tubular adenoma of colon Cataracts, bilateral Impaired fasting glucose Hypercholesterolemia Hypertension Surgical History Hx of colonoscopy Hx of removal of cyst (~2019) No pertinent past surgical history Family History Father Alive and well Mother Hypertension Social History Household Members Other:: Recently Housing: House Alcohol intake: current Patient Tobacco Use Status: Never used Tobacco e-Cigarette/Vaping Use: Never Used Second Hand Smoke Exposure: No service: No Current occupational status: employed Cognitive needs: No Hearing needs: No Vision needs: No Physical Exam Vital Signs: Last Vital Signs Pulse 78 01/01/23 14:07 BP 120/70 01/01/23 14:07 Pulse Ox 96 01/01/23 14:07 Oxygen Delivery Method Room Air 01/01/23 14:07 Skin Other: 3 cm fluctuance swelling between the shoulder. Pus is oozing. Office Procedures I&D Drain Details: Area cleaned with betadine. Infiltrated with 2% Lidocaine. Using a scalpel and 25 G needle 5 cc pus aspirated. patient tolerated the procedure well. [id number]-[id number] of Skin Abscess, simple All charges added?: Procedure code (CPT) selection complete Assessment & Plan Assessment & Plan (1) Sebaceous cyst: Code(s): L72.3 - Sebaceous cyst Plan Cephalexin started. If sx do not improve to follow up here. Orders: Orders AMB Incision & Drainage Today L72.3 - Sebaceous cyst Coding Level of Care Code Est Pt Level 3 (36424) Diagnoses Sebaceous cyst L72.3 CPT Codes I&D Drain - Drain 1: 05695-Sodchbbg of Skin Abscess, simple ([id number])
[2023-01-01 14:07] VITALS: BP 120/70; PULSE 78; O2SAT 96
== END 2023-01-01 14:49 | disposition home or self-care (01) ==
PROVIDERS: PCP Internal Medicine; Visit Provider Internal Medicine
DX: L72.3 Sebaceous cyst (principal)
CPT/HCPCS: 10060; 99213

== ENCOUNTER 2023-01-22 08:21 | Outpatient (AMB) | payer OTHER, SELFPAY ==
--- NOTE | 2023-01-22 08:23 | MHC.OFFVIS ---
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 She has been doing well from cardiac perspective. She is doing very well. She exercises in the gym without any symptoms. No orthopnea, PND. No lightheadedness, syncope. No prolonged palpitation irregular heartbeat or syncopal events. Tolerating her medications well. [facility] Medical History Biventricular ICD (implantable cardioverter-defibrillator) in place Cardiomyopathy Encounter for screening colonoscopy Tubular adenoma of colon Cataracts, bilateral Impaired fasting glucose Hypercholesterolemia Hypertension Surgical History Hx of colonoscopy Hx of removal of cyst (~2019) No pertinent past surgical history Family History Father Alive and well Mother Hypertension Social History Household Members Other:: Recently Housing: House Alcohol intake: current Patient Tobacco Use Status: Never used Tobacco e-Cigarette/Vaping Use: Never Used Second Hand Smoke Exposure: No service: No Current occupational status: employed Cognitive needs: No Hearing needs: No Vision needs: No Review of Systems Const Denies chills, Denies fatigue, Denies fever(s), Denies frequent falls, Denies weakness, Denies weight gain and Denies weight loss ENT Denies dizziness Card Denies chest pain, Denies leg edema, Denies lightheadedness, Denies palpitations, Denies dyspnea, Denies dyspnea on exertion, Denies orthopnea and Denies other (loss of consciousness) Resp Denies cough, Denies dyspnea and Denies dyspnea on exertion GI Denies hematochezia and Denies change in stool character Musc Denies abnormal gait, Denies muscle weakness, Denies numbness, Denies radiating pain into limb and Denies tingling Neuro Denies Abnormal speech present, Denies abnormal gait, Denies dizziness, Denies frequent falls, Denies numbness, Denies tingling and Denies weakness Endo Denies fatigue and Denies palpitations Physical Exam Vital Signs: Last Vital Signs Pulse 70 01/22/23 08:24 BP 122/78 01/22/23 08:24 BMI result Body Mass Index 27.4 Const General: cooperative, comfortable, no acute distress, alert, awake, Physically active and well groomed Nutritional Appearance: average body habitus Orientation/consciousness: patient oriented x3 Limitations: no limitations Neck Neck: Yes trachea midline, Yes supple and Yes no JVD Chest Chest palpation & inspection: other (ICD pocket is well healed with keloidal scar) Resp Effort & Inspection: normal respiratory effort Auscultation: clear to auscultation bilaterally Cardio Jugular venous distension: no JVD Palpation: abnormal PMI displaced PMI Rate: regular rate Rhythm: regular rhythm Heart sounds: S1 normal heart sound present, S2 normal heart sound present, no click, no gallops, no murmurs and no rubs GI Auscultation: normal bowel sounds Neuro General: patient oriented x3 and no focal motor deficits Speech: No Abnormal speech present Extrem General: Yes no clubbing, cyanosis or edema Psych Appearance: grossly normal Affect: Anxious affect present Office Procedures Cardiac Device Check Cardiac Device Check Details: Biventricular [facility] ICD in place. Programmed in DDDR at 60 beats per minute. Biventricular pacing 98% of the time. Atrial ventricular sensing is adequate. Atrial biventricular pacing thresholds adequate. Pacing and shock lead impedance is stable. No arrhythmias detected. Heart failure impedance monitor is within normal limits. 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 Currently does not require diuretic regimen. Clinically appears to be euvolemic. Has good functional status. Continue maximize neurohormonal modulation. Will up titrate carvedilol to 25 mg b.i.d. and increase Entresto to 49-51 mg b.i.d.. Follow-up renal function in 1-2 weeks. If heart rate remains elevated can consider addition of Corlanor therapy. Once maximize can add aldosterone antagonist to her regimen for neurohormonal modulation. She is scheduled to see cardiomyopathy Clinic at [facility]. At this point time I think she can follow up with him in the future not see her as need be. She has an upcoming echocardiogram at [facility]. (2) Biventricular ICD (implantable cardioverter-defibrillator) in place: Comment: [place], implanted March 2022 Code(s): Z95.810 - Presence of automatic (implantable) cardiac defibrillator Plan: Biventricular ICD in place, working well. Adequate Bi V pacing at 98%. Being follow remotely by EP Clinic at [facility]. Functional Bi V ICD and cardiac resynchronization therapy was discussed. Will follow up in the clinic if need be. Thank you for allowing me to partake in her care Medications: New carvedilol must administer with a meal/food 25 mg PO BID 60 tabs 5RF sacubitril-valsartan 49-51 mg (Entresto) 1 tab PO BID 60 tabs 5RF Discontinued sacubitril-valsartan 24-26 mg (Entresto) Discontinued Reason: Doctor's Order 1 tab PO BID 90 days 180 tabs 3RF carvedilol Discontinued Reason: Doctor's Order 12.5 mg PO BID 180 tabs 2RF Coding Level of Care Code Est Pt Level 4 (09692) Diagnoses Nonischemic cardiomyopathy I42.8 Biventricular ICD (implantable cardioverter-defibrillator) in place Z95.810 CPT Codes Cardiac Device Check - Cardiac Device 6: [id number] Cardiac Device Check, multi lead implantable defibrillator ([id number])
[2023-01-22 08:24] VITALS: BP 122/78; PULSE 70; BMI 27.4
== END 2023-01-22 08:47 | disposition home or self-care (01) ==
PROVIDERS: Visit Provider Internal Medicine Cardiovascular Disease
DX: I42.8 Other cardiomyopathies (principal); Z95.810 Presence of automatic (implantable) cardiac defibrillator
CPT/HCPCS: 93284; 99214

== ENCOUNTER → 2023-01-22 08:21 | Outpatient (BNVA) | payer OTHER, SELFPAY | PROVIDERS: Visit Provider Internal Medicine Cardiovascular Disease | DX: Z45.02 Encounter for adjustment and management of automatic implantable cardiac defibrillator (principal); I42.8 Other cardiomyopathies | CPT/HCPCS: 99212 ==

== ENCOUNTER 2023-02-19 08:44 | Outpatient (AMB) | payer OTHER, SELFPAY ==
--- NOTE | 2023-02-19 08:53 | MHC.PC.OV ---
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: No Accompanied by: Self / Same As Patient Allergies No Known Allergies Allergy (Verified 02/19/23 08:54) Medication List - Last Reconciled 02/19/23 by Yuriy Mcneal MD atorvastatin 40 mg PO BEDTIME 90 days carvedilol 25 mg PO BID dapagliflozin propanediol (Farxiga) 10 mg PO DAILY sacubitril-valsartan 49-51 mg (Entresto) 1 tab PO BID Tobacco use date assessed: 05/22/22 Dental Screening Dental Screen Date: 02/19/23 Did you have a dental visit in the last 12 months?: Yes Did you have a dental problem in the last 6 months where you did not have access to dental care?: No Was dental information given to patient?: Patient has dentist HPI physical HPI Details 57-year-old overweight female with nonischemic cardiomyopathy with an ICD impaired glucose tolerance hypercholesterolemia hypertension last seen in November 2022. Patient is here for physical exam. Patient's mammogram is up-to-date colonoscopy is up-to-date September 2021 3 years last echocardiogram was November 2021. Patient has followed up with Cardiology January 22 no symptoms. Titrating carvedilol to 25 mg twice a day an increase in Entresto 49/51 mg twice a day following up with renal function if heart rate remains [facility] pending [facility] Medical History Biventricular ICD (implantable cardioverter-defibrillator) in place Cardiomyopathy Encounter for screening colonoscopy Tubular adenoma of colon Cataracts, bilateral Impaired fasting glucose Hypercholesterolemia Hypertension Surgical History Hx of colonoscopy Hx of removal of cyst (~2019) No pertinent past surgical history Family History Father Alive and well Mother Hypertension (Updated 02/19/23 @ 09:33 by Yuriy Mcneal MD) Household Members Other:: Recently Housing: House Alcohol intake: current Patient Tobacco Use Status: Never used Tobacco e-Cigarette/Vaping Use: Never Used Second Hand Smoke Exposure: No service: No Current occupational status: employed Cognitive needs: No Hearing needs: No Vision needs: No Questionnaire Thrive Questionnaire Date Thrive assessed: 05/22/22 VIVIANA-7 AMB Questionnaire VIVIANA-7 Date VIVIANA - 7 assessed: 05/22/22 Source: Developed by Drs. Eusebio Bhandari, Emelia Summers, Jabari Onofre and colleagues, with an educational damir from [employer]. Review of Systems Const Denies poor appetite and Denies weakness Eyes Denies no additional complaints ENT Reports Normal hearing present, Denies dizziness, Denies nasal congestion, Denies tinnitus and Denies sore throat Card Denies chest pain, Denies syncope, Denies rapid heart rate and Denies dyspnea Resp Denies cough and Denies dyspnea GI Denies change in stool character, Reports constipation, Denies diarrhea, Denies nausea and Denies vomiting Denies urinary frequency, Denies difficulty voiding and Denies dysuria Neuro Reports Normal hearing present, Denies confusion, Denies dizziness, Denies syncope and Denies weakness Psych Denies confusion Physical exam (Primary Care) Vital Signs: Last Vital Signs Pulse 54 02/19/23 08:54 BP 148/70 H 02/19/23 08:54 Pulse Ox 98 02/19/23 08:54 Oxygen Delivery Method Room Air 02/19/23 08:54 BMI result Body Mass Index 27.7 Tobacco/Smoking Status: Tobacco use Status Tobacco use date assessed 05/22/22 02/19/23 08:57 Patient Tobacco Use Status Never used Tobacco 02/19/23 08:57 Tobacco use type 01/19/21 11:03 e-Cigarette/Vaping Use Never Used 02/19/23 08:57 Thrive Assessment: Date of Thrive Assessment Date Thrive assessed 05/22/22 02/19/23 08:57 Const General: No confusion Orientation/consciousness: No confusion HENMT Head: Yes normocephalic Ears: external ears normal and TM's normal bilaterally Face and sinus: Yes normal facial exam Mouth: moist mucous membranes Throat: Yes tonsils normal Eyes Conjunctivae: conjunctivae normal Pupils: Equal, round and reactive pupils present and Pupil accommodation reflex normal Direct Ophthalmoscopy: normal light reflex Neck Neck: No lymphadenopathy Thyroid: Thyroid normal Chest Chest palpation & inspection: normal inspection of the chest Resp Effort & Inspection: normal respiratory effort and no audible wheezes Auscultation: clear to auscultation bilaterally, no crackles, no wheezes and lung sounds not diminished Cardio Rate: regular rate Rhythm: regular rhythm Peripheral pulses: radial pulses present and dorsalis pedis present GI Palpation (GI): no masses Auscultation: normal bowel sounds and normoactive bowel sounds Rectal Exam - Female: deferred Skin General skin exam: no rashes or lesions noted Rashes: no rashes Neuro General: No confusion Cranial nerves: Yes Equal, round and reactive pupils present and Yes Normal hearing present Cognition (Neuro): normal cognition Gait exam (Neuro): Normal gait present Motor exam (neuro): 5/5 motor strength present throughout Deep tendon reflexes (DTR's): Right brachioradialis reflex intensity grade: 2+, Left brachioradialis reflex intensity grade: 2+, Right patellar reflex intensity grade: 2+ and Left patellar reflex intensity grade: 2+ Extrem General: No edema Office Procedures Flu Questionnaire Does the patient have a severe egg allergy?: No Does the patient have severe life threatening allergies?: No Does the patient have a fever or illness today?: No Has the patient ever had Guillain-Fontana Syndrome?: No Has the patient ever had any past reaction to a flu shot?: No Immunizations flu vacc [id number] 6mos up(PF) 60 mcg(15 mcgx4)/0.5 mL IM syringe Performing Provider: Yuriy Mcneal MD Performing Location: [facility] Administered by: Bozena Kcoh CMA on 02/19/23 09:05 Dose Route Admin Location Dispensed Lot Number Expiration Date NDC Credit Collection Specialist 0.5 mL IM Left Deltoid 0.5 mL [id number] 09/22/23 24976-416-30 ezeep VIS Given Date VIS Provided VIS Publication Date 02/19/23 Single Vaccine 20 Eligibility Eligibility Date Funding Source Not VFC Eligible 02/19/23 Private Assessment and Plan Assessment & Plan (1) Annual physical exam: Code(s): Z00.00 - Encounter for general adult medical examination without abnormal findings (2) Nonischemic cardiomyopathy: Comment: 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 Decrease salt intake and exercise blood pressure changes from Cardiology carvedilol Entresto and Farxiga (4) Hypercholesterolemia: Code(s): E78.00 - Pure hypercholesterolemia, unspecified Plan: Avoid fried foods, chicken skin, eggs, butter margarine, pastries and meat. Be it pork or beef they have a lot of cholesterol on atorvastatin 40 mg at bedtime (5) Impaired fasting glucose: Code(s): R73.01 - Impaired fasting glucose Plan: Decrease the amount of carbohydrate intake, pasta, bread, rice and potatoes are all sugar and that is aside from all the sweet stuff, remember that fruits are good but they are Sweet also. (6) Overweight (BMI 25.0-29.9): Code(s): E66.3 - Overweight Plan: Diet and exercise Orders: Orders Comprehensive Met. Panel 6 Months I42.8 - Other cardiomyopathies Thyroid Stimulating Hormone 6 Months I42.8 - Other cardiomyopathies B Type Natriuretic Peptide 6 Months I42.8 - Other cardiomyopathies Lipid Panel 6 Months E78.00 - Pure hypercholesterolemia, unspecified Hemoglobin A1c 6 Months E78.00 - Pure hypercholesterolemia, unspecified Influenza [id number] Immunization Today Z23 - Encounter for immunization Complete Blood Count Auto Diff 6 Months I42.8 - Other cardiomyopathies Free T4 (Free Thyroxine) 6 Months I42.8 - Other cardiomyopathies Coding Level of Care Code Est Pt Prev Care 40-64y(36754) Diagnoses Annual physical exam Z00.00 Nonischemic cardiomyopathy I42.8 Essential hypertension I10 Hypertension type: essential hypertension Hypercholesterolemia E78.00 Impaired fasting glucose R73.01 Overweight (BMI 25.0-29.9) E66.3
[2023-02-19 08:54] VITALS: BP 148/70; PULSE 54; O2SAT 98; BMI 27.7
[2023-02-19 09:29] VITALS: BP 130/70
== END 2023-02-19 09:49 | disposition home or self-care (01) ==
PROVIDERS: Visit Provider Internal Medicine
DX: Z00.00 Encounter for general adult medical examination without abnormal findings (principal); I42.8 Other cardiomyopathies; I10 Essential (primary) hypertension; Z23 Encounter for immunization; E78.00 Pure hypercholesterolemia, unspecified; R73.01 Impaired fasting glucose; E66.3 Overweight
CPT/HCPCS: 90471; 90686; 99396

== ENCOUNTER 2023-08-23 08:04 | Outpatient (REF) | payer OTHER, SELFPAY ==
[2023-08-23 08:13] LABS: MANUAL DIFF FLAG NO
[2023-08-23 08:55] LABS: Basophils Percent Auto 0.6 % (0-2); Hemoglobin 12.6 g/dl (12.0-16.0); Imm Gran Abs Auto 0.02 X10*3/uL (0.00-0.03); Imm Gran Pct Auto 0.4 % (0.0-0.4); Lymphocytes Absolute Auto 1.6 X10*3/uL (1.2-4.9); Lymphocytes Percent Auto 28.8 % (20-40); Mean Corpuscular HGB Conc 32.3 g/dl (31.0-35.0); Mean Corpuscular Hemoglobin 30.9 pg (27.0-33.0); Mean Corpuscular Volume 95.6 fL (80.0-98.0); Mean Platelet Volume 10.4 fL (9.4-12.3); Monocytes Absolute Auto 0.4 X10*3/uL (0.1-1.2); Monocytes Percent Auto 7.9 % (2-11); Neutrophils Absolute Auto 3.4 x10*3/uL (2.0-8.3); Neutrophils Percent Auto 62.3 % (45-73); Platelet Count 205 X10*3/uL (160-400); Red Blood Count 4.08 X10*6/uL (4.20-5.50); Red Cell Distribution Width 13.3 % (11.0-16.0); White Blood Count 5.4 X10*3/uL (4.8-10.8)
[2023-08-23 09:08] LABS: Estimated Average Glucose 111 mg/dL; Hemoglobin A1c % 5.5 % (<6.0)
[2023-08-23 09:22] LABS: B Type Natriuretic Peptide 36 pg/mL (<100)
[2023-08-23 09:29] LABS: Alanine Aminotransferase 34 U/L (0-31); Alkaline Phosphatase 84 U/L (39-117); Anion Gap 14 (12-20); Aspartate Amino Transferase 26 U/L (5-31); Bilirubin Total 0.4 mg/dL (0.0-1.0); Blood Urea Nitrogen 25 mg/dL (9-16); Calcium 9.6 mg/dL (8.4-10.2); Carbon Dioxide 22 mmol/L (22-29); Chloride 109 mmol/L (96-108); Cholesterol 199 mg/dL (<200); Estimated Glomerular Filt Rate 59; Glucose Random 93 mg/dL (60-115); HDL Cholesterol 48 mg/dL (>40); LDL Cholesterol Calculated 135 mg/dL (<100); Potassium 4.3 mmol/L (3.3-5.1); Sodium 141 mmol/L (135-145); Total Protein 7.4 g/dL (6.5-8.0); Triglycerides 83 mg/dL (<150)
[2023-08-23 09:46] LABS: Free T4 (Free Thyroxine) 1.02 ng/dL (0.71-1.85); Thyroid Stimulating Hormone 0.73 uIU/mL (0.32-4.0)
== END 2023-08-23 08:05 | disposition home or self-care (01) ==
LOC: HO.LAB 08:04
PROVIDERS: PCP Internal Medicine; Visit Provider Internal Medicine
DX: I42.8 Other cardiomyopathies (principal); E78.00 Pure hypercholesterolemia, unspecified
CPT/HCPCS: 36415; 80053; 80061; 83036; 83880; 84439; 84443; 85025

== ENCOUNTER 2023-08-27 08:27 | Outpatient (AMB) | payer OTHER, SELFPAY ==
[2023-08-27 08:33] VITALS: BP 100/68; PULSE 78; O2SAT 97; BMI 24.9
--- NOTE | 2023-08-27 08:33 | MHC.PC.OV ---
Vital Signs 08/27/23 08:33 Height 5 ft 2 in Weight 136 lb 0.2 oz BMI 24.9 BP 100/68 Blood Pressure Location Lt brachial Position Sitting Pulse 78 Pulse Source Pulse Oximeter Pulse Oximetry (%) 97 Oxygen Delivery Method Room Air Intake Visit Reasons: cardiomyopathy Allergies No Known Allergies Allergy (Verified 08/27/23 08:36) Medication List - Last Reconciled 08/27/23 by Yuriy Mcneal MD atorvastatin 40 mg PO BEDTIME 90 days carvedilol 25 mg PO BID dapagliflozin propanediol (Farxiga) 10 mg PO DAILY sacubitril-valsartan 97-103 mg (Entresto) 1 tab PO BID spironolactone 25 mg PO DAILY Tobacco use date assessed: 08/27/23 Dental Screening Dental Screen Date: 08/27/23 Did you have a dental visit in the last 12 months?: Yes Did you have a dental problem in the last 6 months where you did not have access to dental care?: No Was dental information given to patient?: Patient has dentist HPI cardiomyopathy HPI Details 57-year-old female with a history of nonischemic cardiomyopathy hypertension hypercholesterolemia impaired glucose tolerance coming in for follow-up. Last seen in 02/11/2023. Patient's mammogram is due this month colonoscopy is up-to-date 04/27/2019 years 08/11/2022 last echocardiogram showing EF of 20 25% cardiology notes reviewed 01/11/2023 device interrogation Telehealth visit(placed 04/13/2022) no heart failure symptoms advised referral to heart failure clinic for titration as well as echocardiogram. was told EF has increased PFSH Medical History Biventricular ICD (implantable cardioverter-defibrillator) in place Cardiomyopathy Encounter for screening colonoscopy Tubular adenoma of colon Cataracts, bilateral Impaired fasting glucose Hypercholesterolemia Hypertension Surgical History Hx of colonoscopy Hx of removal of cyst (~2019) No pertinent past surgical history Family History Father Alive and well Mother Hypertension Social History (Updated 02/19/23 @ 09:33 by Yuriy Mcneal MD) Household Members Other:: Recently Housing: House Alcohol intake: current Comment: has not drank Patient Tobacco Use Status: Never used Tobacco e-Cigarette/Vaping Use: Never Used Second Hand Smoke Exposure: No service: No Current occupational status: employed Cognitive needs: No Hearing needs: No Vision needs: No Questionnaire Thrive Questionnaire Date Thrive assessed: 08/27/23 I am a: Patient What is your living situation today?: I have a steady place to live Within the past 12 months, did the food you bought not last and you didn't have the money to get more?: Never true Within the past 12 months, did you worry whether your food would run out before you got money to buy more?: Never true Do you have trouble paying for medicines?: No Do you have trouble getting transportation to medical appointments?: No Do you have trouble paying your heating and electricity bill?: No Do you have trouble taking care of your child, family member or friend?: No Do you have trouble with day-to-day activities such as bathing, preparing meals, shopping, managing finances, etc.?: No Are you currently unemployed and looking for a job?: No Are you interested in more education?: No Please select the resources that you would like help with: None Currently or been in a relationship where the following occur: no concerns reported THRIVE Score: 0 AUDIT C Alcohol Use Questionnaire (AUDIT-C) 1. How often do you have a drink containing alcohol?: Never 3. How often do you have six or more drinks on one occasion?: Never Total Score: 0 VIVIANA-7 AMB Questionnaire VIVIANA-7 Date VIVIANA - 7 assessed: 08/27/23 Source: Developed by Drs. Eusebio Bhandari, Emelia Summers, Jabari Onofre and colleagues, with an educational damir from [employer]. Physical exam (Primary Care) Vital Signs: Last Vital Signs Pulse 78 08/27/23 08:33 BP 100/68 08/27/23 08:33 Pulse Ox 97 08/27/23 08:33 Oxygen Delivery Method Room Air 08/27/23 08:33 BMI result Body Mass Index 24.9 Tobacco/Smoking Status: Tobacco use Status Tobacco use date assessed 08/27/23 08/27/23 08:40 Patient Tobacco Use Status Never used Tobacco 08/27/23 08:40 Tobacco use type 01/19/21 11:03 e-Cigarette/Vaping Use Never Used 08/27/23 08:40 Thrive Assessment: Date of Thrive Assessment Date Thrive assessed 08/27/23 08/27/23 08:40 Currently or been in a relationship where the following occur: no concerns reported Const General: alert; No acute distress Eyes Conjunctivae: conjunctivae normal Resp Auscultation: clear to auscultation bilaterally Cardio Rate: regular rate Rhythm: regular rhythm GI Inspection: Yes normal to inspection Extrem General: Yes normal to inspection and No edema Immunizations pneumoc 20-diaz conj-dip cr(PF) 0.5 mL IM syringe Performing Provider: Yuriy Mcneal MD Performing Location: [facility] [place] [facility] Administered by: ERIKA Torres on 08/27/23 09:01 Dose Route Admin Location Dispensed Lot Number Expiration Date NDC Etl Manager 0.5 mL IM Left Deltoid 0.5 mL [id number] 07/23/24 4756-1595-27 [employer]PENRITH VIS Given Date VIS Provided VIS Publication Date 08/27/23 Single Vaccine 21 Eligibility Eligibility Date Funding Source Not [facility] Eligible 08/27/23 Private Assessment and Plan Assessment & Plan (1) Nonischemic cardiomyopathy: Comment: 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 Carvedilol 25 mg twice a day, Farxiga 10 mg once a day Entresto 49/51 mg twice a day and spironolactone 25 mg once a day (2) Biventricular ICD (implantable cardioverter-defibrillator) in place: Comment: [employer] [place], implanted March 2022 Code(s): Z95.810 - Presence of automatic (implantable) cardiac defibrillator Plan: Patient continues to have interrogation done for the ICD. (3) Impaired fasting glucose: Code(s): R73.01 - Impaired fasting glucose Plan: Decrease the amount of carbohydrate intake, pasta, bread, rice and potatoes are all sugar and that is aside from all the sweet stuff, remember that fruits are good but they are Sweet also. (4) Hypercholesterolemia: Code(s): E78.00 - Pure hypercholesterolemia, unspecified Plan: Avoid fried foods, chicken skin, eggs, butter margarine, pastries and meat. Be it pork or beef they have a lot of cholesterol presently on atorvastatin 40 mg once a day (5) Hypertension: Code(s): I10 - Essential (primary) hypertension Qualifiers: Hypertension type: essential hypertension Qualified Code(s): I10 - Essential (primary) hypertension Plan: Continue with blood pressure medication. Decrease salt intake and exercise continuing carvedilol 25 mg twice a day, Farxiga, Entresto and spironolactone Orders: Orders Pneumococcal 20 Immunization Today Z23 - Encounter for immunization Lipid Panel 3 Months E78.00 - Pure hypercholesterolemia, unspecified Comprehensive Met. Panel 3 Months E78.00 - Pure hypercholesterolemia, unspecified Medications: New sacubitril-valsartan 97-103 mg (Entresto) 1 tab PO BID 60 tabs 0RF pneumoc 20-diaz conj-dip cr(PF) 0.5 mL IM ONCE 0.5 mL 0RF Z23 - Encounter for immunization Discontinued sacubitril-valsartan 49-51 mg (Entresto) Discontinued Reason: Doctor's Order 1 tab PO BID 60 tabs 5RF Coding Level of Care Code Est Pt Level 4 (98516) Diagnoses Nonischemic cardiomyopathy I42.8 Biventricular ICD (implantable cardioverter-defibrillator) in place Z95.810 Impaired fasting glucose R73.01 Hypercholesterolemia E78.00 Essential hypertension I10 Hypertension type: essential hypertension
== END 2023-08-27 09:05 | disposition home or self-care (01) ==
PROVIDERS: PCP Internal Medicine; Visit Provider Internal Medicine
DX: I42.8 Other cardiomyopathies (principal); Z95.810 Presence of automatic (implantable) cardiac defibrillator; R73.01 Impaired fasting glucose; E78.00 Pure hypercholesterolemia, unspecified; I10 Essential (primary) hypertension; Z23 Encounter for immunization
CPT/HCPCS: 90471; 90677; 99214

== ENCOUNTER 2023-09-17 07:32 | Outpatient (REF) | payer OTHER, SELFPAY ==
--- NOTE | ~2023-09-17 | MM_ITS ---
EXAMINATION: MM SCREENING DIGITAL BREAST TOMOSYNTHESIS, BILATERAL CLINICAL INFORMATION: Screening. Asymptomatic. COMPARISON: Mammography: This study is compared with prior exams dating back to 2019. TECHNIQUE: Digital breast tomosynthesis is performed in both the craniocaudal and mediolateral oblique views along with computer-aided detection (CAD). Synthesized 2D images are generated from the tomosynthesis. FINDINGS: There are scattered areas of fibroglandular density (ACR BI-RADS breast composition Category b). There are no significant masses, abnormal calcifications, or other abnormalities. There is a pacemaker in the superior aspect the left breast. MM/MM tomosynthesis screening BI IMPRESSION: No mammographic evidence of malignancy. ASSESSMENT: BI-RADS BI-RADS 1 - Negative RECOMMENDATION: Routine annual mammography screening. 1 year F/U This examination should not preclude the clinical evaluation of a suspicious palpable abnormality. This patient's information was entered into a reminder system with a target due date for their next mammogram.
== END 2023-09-17 07:33 | disposition home or self-care (01) ==
LOC: HO.MAMMO 07:32
PROVIDERS: PCP Internal Medicine; Visit Provider Internal Medicine
DX: Z12.31 Encounter for screening mammogram for malignant neoplasm of breast (principal)
CPT/HCPCS: 77063; 77067

== ENCOUNTER → 2023-09-17 07:45 | Outpatient (BNV) | payer OTHER, SELFPAY | PROVIDERS: PCP Internal Medicine; Visit Provider Radiology Diagnostic Radiology | DX: Z12.31 Encounter for screening mammogram for malignant neoplasm of breast (principal) | CPT/HCPCS: 77063; 77067 ==

== ENCOUNTER 2024-02-24 07:03 | Outpatient (REF) | payer OTHER, SELFPAY ==
[2024-02-24 08:56] LABS: Alanine Aminotransferase 33 U/L (0-31); Albumin Level 3.8 g/dL (3.5-5.0); Alkaline Phosphatase 68 U/L (39-117); Anion Gap 12 (12-20); Aspartate Amino Transferase 28 U/L (5-31); Bilirubin Total 0.4 mg/dL (0.0-1.0); Blood Urea Nitrogen 16 mg/dL (9-16); Calcium 9.3 mg/dL (8.4-10.2); Carbon Dioxide 26 mmol/L (22-29); Chloride 109 mmol/L (96-108); Cholesterol 194 mg/dL (<200); Estimated Glomerular Filt Rate 55; Glucose Random 96 mg/dL (60-115); HDL Cholesterol 60 mg/dL (>40); LDL Cholesterol Calculated 121 mg/dL (<100); Potassium 4.6 mmol/L (3.3-5.1); Sodium 142 mmol/L (135-145); Total Protein 6.8 g/dL (6.5-8.0); Triglycerides 69 mg/dL (<150)
== END 2024-02-24 07:04 | disposition home or self-care (01) ==
LOC: HO.LAB 07:03
PROVIDERS: PCP Internal Medicine; Visit Provider Internal Medicine
DX: E78.00 Pure hypercholesterolemia, unspecified (principal)
CPT/HCPCS: 36415; 80053; 80061

== ENCOUNTER 2024-02-26 08:50 | Outpatient (AMB) | payer OTHER, SELFPAY ==
[2024-02-26 09:11] VITALS: BP 106/58; PULSE 60; O2SAT 98; BMI 24.0
--- NOTE | 2024-02-26 09:11 | A.OFFPC_ITS ---
Vital Signs 02/26/24 09:11 Height 5 ft 2 in Weight 131 lb BMI 24.0 BP 106/58 L Blood Pressure Location Lt brachial Position Sitting Pulse 60 Pulse Source Pulse Oximeter Pulse Oximetry (%) 98 Oxygen Delivery Method Room Air Intake Visit Reasons: Annual exam Allergies No Known Allergies Allergy (Verified 02/26/24 09:12) Medication List - Last Reconciled 02/26/24 by Yuriy Mcneal MD atorvastatin 40 mg PO BEDTIME 90 days carvedilol 25 mg PO BID dapagliflozin propanediol (Farxiga) 10 mg PO DAILY sacubitril-valsartan 97-103 mg (Entresto) 1 tab PO BID spironolactone 25 mg PO DAILY Tobacco use date assessed: 02/26/24 Dental Screening Dental Screen Date: 08/27/23 HPI Annual exam HPI Details The patient is a 58-year-old female presenting for a routine physical examination and medication review. She has a history of heart failure with reduced ejection fraction. Her ejection fraction has improved from 20% to approximately 35% as of her last evaluation. She currently takes several medications, including atorvastatin for hyperlipidemia, carvedilol and spironolactone for hypertension and heart failure, and Farxiga and Entresto for heart failure management, as well as diabetes management. She reports adherence to her medication regimen and a notable lifestyle change in diet and exercise, maintaining regular gym visits for 1.5 to 2 hours, five days a week. Since beginning these lifestyle modifications, she feels well without new symptoms. She denies any recent diagnosis, surgeries, allergies, or adverse reactions to medications. She follows a diet low in sodium and primarily consumes salmon and chicken, while avoiding high-sodium foods. Follow-up care for her cardiac condition includes regular Pap smears, colonoscopies, mammograms, and EKGs. She experiences no dizziness, syncope, nausea, vomiting, or dysphagia aside from an incident of illness after eating pizza.- Exercises regularly, engaged in gym activities 1.5-2 hours daily, five days a week. - Reports a very low alcohol intake, les s than one glass of red wine every six months. - Avoids high-sodium foods, adheres to a strict diet primarily comprising salmon and chicken. - Has not smoked cigarettes and ceased e ating pork years ago due to adverse effects. 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 - Lives a lifestyle centered around [facility] food choices and exercise, influenced by her son's vegetarianism. - Exercises regularly, engaged in gym ac tivities 1.5-2 hours daily, five days a week. - Reports a very low alcohol intake, les s than one glass of red wine every six months. - Avoids high-sodium foods, adheres to a strict diet primarily comprising salmon and chicken. - Has not smoked cigarettes and ceased e ating pork years ago due to adverse effects. 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 - Lives a lifestyle centered around [facility] food choices and exercise, influenced by her son's vegetarianism. - General: Denies weight loss, fever, di zziness, syncope. - Cardiovascular: Denies chest pain, elisa rtness of breath. - Respiratory: Denies difficulty breathi ng. - Gastrointestinal: Denies nausea, vomit ing, swallowing difficulties. - Genitourinary: Denies changes in urina ry habits, voids normally overnight. - Neurological: Denies vision changes, h earing loss. - Musculoskeletal: Denies joint pain, ne w or worsening muscle pain. - Labs: Recent blood work performed Dece mber 2nd, electrolytes within normal limits, bad cholesterol reading at 121 (below threshold). [facility] Medical History (Updated 02/26/24 @ 09:57 by Yuriy Mcneal MD) Overweight (BMI 25.0-29.9) Biventricular ICD (implantable cardioverter-defibrillator) in place Cardiomyopathy Encounter for screening colonoscopy Tubular adenoma of colon Cataracts, bilateral Impaired fasting glucose Hypercholesterolemia Hypertension Surgical History Hx of colonoscopy Hx of removal of cyst (~2019) No pertinent past surgical history Family History Father Alive and well Mother Hypertension Social History (Updated 02/26/24 @ 09:50 by Yuriy Mcneal MD) Household Members Other:: Recently Housing: House Alcohol intake: current Comment: on ce Q 6 months drink Patient Tobacco Use Status: Never used Tobacco Tobacco use type: Cigarette e-Cigarette/Vaping Use: Never Used Second Hand Smoke Exposure: No service: No Current occupational status: employed Cognitive needs: No Hearing needs: No Vision needs: No Questionnaire PHQ-9 Over the last 2 weeks, how often have you been bothered by any of the following problems? 1. Little interest or pleasure in doing things: not at all 2. Feeling down, depressed, or hopeless: not at all 3. Trouble falling or staying asleep, or sleeping too much: not at all 4. Feeling tired or having little energy: not at all 5. Poor appetite or overeating: not at all 6. Feeling bad about yourself - or that you are a failure or have let yourself or your family down: not at all 7. Trouble concentrating on things, such as reading the newspaper or watching television: not at all 8. Moving or speaking so slowly that other people could have noticed. Or the opposite - being so fidgety or restless that you have been moving around a lot more than usual: not at all 9. Thoughts that you would be better off or of hurting yourself in some way: not at all Total score: 0 Source: Developed by Drs. Eusebio Bhandari, Emelia Summers, Jabari Onofre and colleagues, with an educational damir from [employer]. Thrive Questionnaire Date Thrive assessed: 02/24/24 I am a: Patient What is your living situation today?: I have a steady place to live Within the past 12 months, did the food you bought not last and you didn't have the money to get more?: Never true Within the past 12 months, did you worry whether your food would run out before you got money to buy more?: Never true Do you have trouble paying for medicines?: No Do you have trouble getting transportation to medical appointments?: No Do you have trouble paying your heating and electricity bill?: No Do you have trouble taking care of your child, family member or friend?: No Do you have trouble with day-to-day activities such as bathing, preparing meals, shopping, managing finances, etc.?: No Are you currently unemployed and looking for a job?: Yes Are you interested in more education?: No Please select the resources that you would like help with: None Currently or been in a relationship where the following occur: No concerns reported THRIVE Score: 0 AUDIT C Alcohol Use Questionnaire (AUDIT-C) 1. How often do you have a drink containing alcohol?: Monthly or less 2. How many drinks containing alcohol do you have on a typical day when you are drinking?: 1 or 2 3. How often do you have six or more drinks on one occasion?: Never Total Score: 1 VIVIANA-7 AMB Questionnaire VIVIANA-7 Date VIVIANA - 7 assessed: 02/26/24 Feeling nervous, anxious, or on edge: 0 = Not at all Not being able to stop or control worryin = Not at all Worrying too much about different things: 0 = Not at all Trouble relaxin = Not at all Being so restless that it is hard to sit still: 0 = Not at all Becoming easily annoyed or irritable: 0 = Not at all Feeling afraid as if something awful might happen: 0 = Not at all Total VIVIANA-7 score (0-4 normal; 5-9 mild; 10-14 moderate; 15-21 severe): 0 Source: Developed by Drs. Eusebio Bhandari, Emelia Summers, Jabari Onofre and colleagues, with an educational damir from [employer]. Physical exam (Primary Care) Vital Signs: Last Vital Signs Pulse 60 02/26/24 09:11 BP 106/58 L 02/26/24 09:11 Pulse Ox 98 02/26/24 09:11 Oxygen Delivery Method Room Air 02/26/24 09:11 BMI result Body Mass Index 24.0 Tobacco/Smoking Status: Tobacco use Status Tobacco use date assessed 02/26/24 02/26/24 09:17 Patient Tobacco Use Status Never used Tobacco 02/26/24 09:50 Tobacco use type Cigarette 02/26/24 09:50 e-Cigarette/Vaping Use Never Used 02/26/24 09:50 PHQ-9: PHQ-9 Score PHQ-9: Total score 0 02/26/24 09:53 Thrive Assessment: Date of Thrive Assessment Date Thrive assessed 02/24/24 02/26/24 09:17 Currently or been in a relationship where the following occur: No concerns reported Office Procedures Flu Questionnaire Does the patient have a severe egg allergy?: No Does the patient have severe life threatening allergies?: No Does the patient have a fever or illness today?: No Has the patient ever had Guillain-Kennerdell Syndrome?: No Has the patient ever had any past reaction to a flu shot?: No Immunizations Fluarix Triv 1871-2057 (PF) 45 mcg (15 mcg x 3)/0.5 mL IM syringe Performing Provider: Yuriy Mcneal MD [place] [facility] [place] [facility] Administered by: Bozena Koch CMA on 02/26/24 09:18 Dose Route Admin Location Dispensed Lot Number Expiration Date NDC Director Of State 0.5 mL IM Left Deltoid 0.5 mL [id number] 09/21/24 37093-191-85 [employer] VIS Given Date VIS Provided VIS Publication Date 02/26/24 Single Vaccine 20 Eligibility Eligibility Date Funding Source [place] [facility] [place] 02[place]26/24 Private Coding Level of Care Code Est Pt Prev Care 40-64y(84041) Diagnoses Annual physical exam Z00.00 Hypercholesterolemia E78.00 Essential hypertension I10 Hypertension type: essential hypertension Nonischemic cardiomyopathy I42.8 Biventricular ICD (implantable cardioverter-defibrillator) in place Z95.810 Assessment & Plan Assessment & Plan (1) Annual physical exam: Code(s): Z00.00 - Encounter for general adult medical examination without abnormal findings Category: Medical Plan: Patient is advised to eat healthy, keep well hydrated, keep active and have adequate sleep. (2) Hypercholesterolemia: Code(s): E78.00 - Pure hypercholesterolemia, unspecified Category: Medical Plan: Avoid fried foods, chicken skin, eggs, butter margarine, pastries and meat. Be it pork or beef they have a lot of cholesterol LDL goal of less than 70 and triglyceride of less than 150 on atorvastatin 40 mg once a day (3) Hypertension: Code(s): I10 - Essential (primary) hypertension Category: Medical Qualifiers: Hypertension type: essential hypertension Qualified Code(s): I10 - Essential (primary) hypertension Plan: Continue with blood pressure medication. Decrease salt intake and exercise patient is on Entresto, carvedilol. 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-D(cardiac resynchronization therapy with ICD) placement March 2022 cardiac catheterization nonobstructive Code(s): I42.8 - Other cardiomyopathies Category: Medical Plan: Continue to follow up with Cardiology, continue with present medication (5) Biventricular ICD (implantable cardioverter-defibrillator) in place: Comment: [place] implanted March 2022 Code(s): Z95.810 - Presence of automatic (implantable) cardiac defibrillator Category: Medical Plan: Continue to follow-up with cardiology with ICD check Plan - Heart Failure: Continue current medications Entresto, carvedilol, spironolactone, atorvastatin, Farxiga) and reinforce adherence, given demonstrated improvements in ejection fraction. - Hypertension: Maintain current medication regimen and healthy lifestyle to support blood pressure control. - Hyperlipidemia: Continue atorvastatin; cholesterol levels are managed effectively. - - General Health Maintenance: Encourage continued engagement in physical activity and dietary habits. Recommend remaining up-to-date on vaccinations and screen for shingles consideration. - Follow-up Care: Schedule six-month follow-up unless earlier contact is required for new symptoms or concerns. I discussed with the patient the successes in her current management of heart failure, hypertension, and hyperlipidemia. We reviewed the promising improvements in her ejection fraction and blood cholesterol levels. I encouraged her to maintain her dietary habits and regular exercise as they play a significant role in managing her conditions. We talked about the potential benefits and mild risks associated with the shingles vaccine, which may be administered if desired Furthermore, I affirmed the importance of follow-up visits and reassured her about the effectiveness of her current treatment plan. - Continue all prescribed medications as directed. - Maintain exercise routine and healthy dietary habits, focusing on low sodium intake. - If pain relief is needed, use Tylenol as it is appropriate. - Consider discussing the shingles vaccine with the pharmacy, given the prior history of shingles. - Keep monitoring heart health parameters like ejection fraction. - Follow up in six months or sooner if new symptoms arise. - Stay updated on routine vaccinations and screenings. - Contact the office if any new health concerns develop or for an earlier appointment if necessary. Orders: Orders Influenza [id number] Immunization Today Z23 - Encounter for immunization
== END 2024-02-26 10:03 | disposition home or self-care (01) ==
PROVIDERS: PCP Internal Medicine; Visit Provider Internal Medicine
DX: Z00.00 Encounter for general adult medical examination without abnormal findings (principal); E78.00 Pure hypercholesterolemia, unspecified; I10 Essential (primary) hypertension; I42.8 Other cardiomyopathies; Z95.810 Presence of automatic (implantable) cardiac defibrillator; Z23 Encounter for immunization

== ENCOUNTER → 2024-02-26 08:50 | Outpatient (BNVA) | payer OTHER, SELFPAY | PROVIDERS: PCP Internal Medicine; Visit Provider Internal Medicine | DX: Z00.00 Encounter for general adult medical examination without abnormal findings (principal); Z23 Encounter for immunization; E78.00 Pure hypercholesterolemia, unspecified; I42.8 Other cardiomyopathies; I11.0 Hypertensive heart disease with heart failure; I50.9 Heart failure, unspecified; Z79.899 Other long term (current) drug therapy; Z95.810 Presence of automatic (implantable) cardiac defibrillator | CPT/HCPCS: 90471; 90656; 96127 ==

== ENCOUNTER 2024-08-26 08:46 | Outpatient (AMB) | payer OTHER, SELFPAY ==
--- NOTE | 2024-08-26 08:49 | A.OFFPC_ITS ---
Vital Signs 08/26/24 08:50 Height 5 ft 2 in Weight 139 lb 2 oz BMI 25.4 BP 106/78 Blood Pressure Location Lt brachial Position Sitting Pulse 61 Pulse Source Pulse Oximeter Pulse Oximetry (%) 98 Oxygen Delivery Method Room Air Intake Visit Reasons: Cardiolmyopathy Radiologic Technologist Required: No Accompanied by: Self / Same As Patient Allergies No Known Allergies Allergy (Verified 08/26/24 08:50) Tobacco use date assessed: 08/26/24 Dental Screening Dental Screen Date: 08/26/24 Did you have a dental visit in the last 12 months?: Yes Did you have a dental problem in the last 6 months where you did not have access to dental care?: No Was dental information given to patient?: Patient has dentist [facility] Medical History (Updated 08/26/24 @ 08:53 by Yuriy Mcneal MD) Tubular adenoma of colon Overweight (BMI 25.0-29.9) Biventricular ICD (implantable cardioverter-defibrillator) in place Cardiomyopathy Encounter for screening colonoscopy Cataracts, bilateral Impaired fasting glucose Hypercholesterolemia Hypertension Surgical History Hx of colonoscopy Hx of removal of cyst (~2019) No pertinent past surgical history Family History Father Alive and well Mother Hypertension Social History Household Members Other:: Recently Housing: House Alcohol intake: current Comment: on ce Q 6 months drink Patient Tobacco Use Status: Never used Tobacco Tobacco use type: Cigarette e-Cigarette/Vaping Use: Never Used Second Hand Smoke Exposure: No service: No Current occupational status: employed Cognitive needs: No Hearing needs: No Vision needs: No Questionnaire PHQ-9 Over the last 2 weeks, how often have you been bothered by any of the following problems? 1. Little interest or pleasure in doing things: not at all 2. Feeling down, depressed, or hopeless: not at all 3. Trouble falling or staying asleep, or sleeping too much: not at all 4. Feeling tired or having little energy: not at all 5. Poor appetite or overeating: not at all 6. Feeling bad about yourself - or that you are a failure or have let yourself or your family down: not at all 7. Trouble concentrating on things, such as reading the newspaper or watching television: not at all 8. Moving or speaking so slowly that other people could have noticed. Or the opposite - being so fidgety or restless that you have been moving around a lot more than usual: not at all 9. Thoughts that you would be better off or of hurting yourself in some way: not at all Total score: 0 Source: Developed by Drs. Eusebio Bhandari, Emelia Summers, Jabari Onofre and colleagues, with an educational damir from [employer]. Thrive Questionnaire Date Thrive assessed: 08/26/24 I am a: Patient What is your living situation today?: I have a steady place to live Within the past 12 months, did the food you bought not last and you didn't have the money to get more?: Never true Within the past 12 months, did you worry whether your food would run out before you got money to buy more?: Never true Do you have trouble paying for medicines?: No Do you have trouble getting transportation to medical appointments?: No Do you have trouble paying your heating and electricity bill?: No Do you have trouble taking care of your child, family member or friend?: No Do you have trouble with day-to-day activities such as bathing, preparing meals, shopping, managing finances, etc.?: No Are you currently unemployed and looking for a job?: Yes Are you interested in more education?: No Please select the resources that you would like help with: None Currently or been in a relationship where the following occur: No concerns reported THRIVE Score: 0 AUDIT C Alcohol Use Questionnaire (AUDIT-C) 1. How often do you have a drink containing alcohol?: Monthly or less 2. How many drinks containing alcohol do you have on a typical day when you are drinking?: 1 or 2 3. How often do you have six or more drinks on one occasion?: Never Total Score: 1 VIVIANA-7 AMB Questionnaire VIVIANA-7 Date VIVIANA - 7 assessed: 08/26/24 Feeling nervous, anxious, or on edge: 0 = Not at all Not being able to stop or control worryin = Not at all Worrying too much about different things: 0 = Not at all Trouble relaxin = Not at all Being so restless that it is hard to sit still: 0 = Not at all Becoming easily annoyed or irritable: 0 = Not at all Feeling afraid as if something awful might happen: 0 = Not at all Total VIVIANA-7 score (0-4 normal; 5-9 mild; 10-14 moderate; 15-21 severe): 0 Source: Developed by Drs. Eusebio Bhandari, Emelia Summers, Jabari Onofre and colleagues, with an educational damir from [employer]. Physical exam (Primary Care) Vital Signs: Oxygen Delivery Method Room Air 08/26/24 08:50 Tobacco/Smoking Status: Tobacco use Status Tobacco use date assessed 02/26/24 02/26/24 09:17 Patient Tobacco Use Status Never used Tobacco 02/26/24 09:50 Tobacco use type Cigarette 02/26/24 09:50 e-Cigarette/Vaping Use Never Used 02/26/24 09:50 Thrive Assessment: Date of Thrive Assessment Date Thrive assessed 08/19/24 08/19/24 11:57 Currently or been in a relationship where the following occur: No concerns reported Const General: alert; No acute distress Eyes Conjunctivae: conjunctivae normal Resp Auscultation: clear to auscultation bilaterally Cardio Rate: regular rate Rhythm: regular rhythm GI Inspection: Yes normal to inspection Extrem General: Yes normal to inspection and No edema Coding Level of Care Code Est Pt Level 4 (65046) Complex EM visit Add On G2211 Diagnoses Essential hypertension I10 Hypertension type: essential hypertension Hypercholesterolemia E78.00 Impaired fasting glucose R73.01 Nonischemic cardiomyopathy I42.8 Tubular adenoma of colon D12.6 Assessment & Plan Assessment & Plan (1) Hypertension: Code(s): I10 - Essential (primary) hypertension Category: Medical Qualifiers: Hypertension type: essential hypertension Qualified Code(s): I10 - Essential (primary) hypertension Plan: Continue with blood pressure medication. Decrease salt intake and exercise patient on Entresto carvedilol 25 mg twice a day and spironolactone (2) Hypercholesterolemia: Code(s): E78.00 - Pure hypercholesterolemia, unspecified Category: Medical Plan: Avoid fried foods, chicken skin, eggs, butter margarine, pastries and meat. Be it pork or beef they have a lot of cholesterol LDL goal of less than 130 and tri glyceride of less than 50 (3) Impaired fasting glucose: Code(s): R73.01 - Impaired fasting glucose Category: Medical Plan: Decrease the amount of carbohydrate intake, pasta, bread, rice and potatoes are all sugar and that is aside from all the sweet stuff, remember that fruits are good but they are Sweet also. 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 Lezama March 2015- tubular adenoma- Dr. Patel-September 2021- adenoma Code(s): D12.6 - Benign neoplasm of colon, unspecified Category: Medical Plan: Patient is reminded about colonoscopy Plan History of Present Illness The patient is a 58-year-old female presenting for a follow-up on her nonischemic cardiomyopathy management and routine health maintenance. Previously diagnosed in 2022 with nonischemic cardiomyopathy, she underwent ICD placement and reported improvements in her heart function over subsequent assessments, with her ejection fraction now within normal limits. She manages her essential hypertension and hypercholesterolemia with a combination of medications aimed at maintaining target LDL and triglyceride levels, and manages her impaired glucose tolerance with prescribed medication. The patient follows a structured exercise routine, takes adequate hydration, and limits dietary salt intake. She reports a historical case of shingles, treated appropriately at the time. Health Maintenance - Mammogram due this month; patient received a notification. - Colonoscopy is due between September 2022 and 2023, follow up based on previous findings in 2021. - Pneumonia and tetanus vaccination up to date. - Discussed shingles vaccination; patient had shingles previously. - [facility] appointment due for August. - Continue healthy diet, exercise, and hydration. - Bloodwork requested for electrolyte and kidney function due to spironolactone usage. Social History - Regular exercise routine: five days a week with weekends off. - Current employment status: unemployed since December last year, seeking new employment. - Nutritional intake: low salt diet focusing on vegetables and lean protein. - Stress management: awareness of high stress due to unemployment, trying to manage stress effectively. - Alcohol and Substance Use: Not discussed. Review of Systems - Cardiovascular: Denies chest pain, no shortness of breath reported. - Respiratory: Reports regular breathing. - Dermatological: History of shingles resolved. - General: Denies new symptoms, overall health stable. Physical Exam Results - Echocardiogram in 2022 showing improvement in ejection fraction. Plan The patient will maintain current treatment for nonischemic cardiomyopathy, hypertension, and dyslipidemia, while monitoring of electrolytes and renal function is planned due to spironolactone use. Her improved cardiac function allows continuation of her current regimen without adjustment. Routine health screenings, including mammography and periodic colonoscopy, are scheduled according to established guidelines, with a [facility] follow-up planned. Her overall adherence to medication and exercise regimen is commendable, emphasizing continued stress management due to recent unemployment. Patient was informed and verbally consented to the use of an ambient scribe for clinic note documentation during this visit. Discussion Notes I discussed the stable management of the patient's nonischemic cardiomyopathy and the assurance provided by recent echocardiogram results. We reviewed her medication regimen and the importance of maintaining control of her hypertension and hypercholesterolemia to mitigate cardiac risk. I highlighted the absence of immediate concerns based on her cardiac function and reinforced the benefits of her current lifestyle choices in aiding overall health. We addressed her past history of shingles and her up-to-date immunization status. I advised her about due mammogram and colonoscopy testing and encouraged her to maintain stress management practices. The patient was advised to contact the clinic via the portal for any arising concerns and ensured that follow-up care will be scheduled as needed. Patient Instructions - Continue taking prescribed medications as directed. - Follow a low sodium diet, and incorporate plenty of vegetables and lean protein. - Maintain an exercise routine, resting two days weekly. - Hydrate well and monitor stress levels. - Schedule mammogram this month and follow-up with [facility] as advised. - Attend to recommended bloodwork for electrolyte and kidney function. - Use the office portal for non-urgent queries or concerns. - Watch for any changes in health and seek prompt care if needed. Orders: Orders B Type Natriuretic Peptide Today I42.8 - Other cardiomyopathies Comprehensive Met. Panel Today I42.8 - Other cardiomyopathies Thyroid Stimulating Hormone Today I42.8 - Other cardiomyopathies Vitamin B12 and Folate Today I42.8 - Other cardiomyopathies Hemoglobin A1c Today I42.8 - Other cardiomyopathies Vitamin B12 and Folate 6 Months I42.8 - Other cardiomyopathies Vitamin D 25-OH Total 6 Months I42.8 - Other cardiomyopathies Complete Blood Count Auto Diff Today I42.8 - Other cardiomyopathies Free T4 (Free Thyroxine) Today I42.8 - Other cardiomyopathies Lipid Panel Today E78.00 - Pure hypercholesterolemia, unspecified, I42.8 - Other cardiomyopathies Vitamin D 25-OH Total Today I42.8 - Other cardiomyopathies Complete Blood Count Auto Diff 6 Months I42.8 - Other cardiomyopathies Comprehensive Met. Panel 6 Months I42.8 - Other cardiomyopathies B Type Natriuretic Peptide 6 Months I42.8 - Other cardiomyopathies Free T4 (Free Thyroxine) 6 Months I42.8 - Other cardiomyopathies Hemoglobin A1c 6 Months I42.8 - Other cardiomyopathies Lipid Panel 6 Months E78.00 - Pure hypercholesterolemia, unspecified, I42.8 - Other cardiomyopathies Thyroid Stimulating Hormone 6 Months I42.8 - Other cardiomyopathies
[2024-08-26 08:50] VITALS: BP 106/78; PULSE 61; O2SAT 98; BMI 25.4
== END 2024-08-26 09:07 | disposition home or self-care (01) ==
LOC: HO.HMCH 08:49
PROVIDERS: PCP Internal Medicine; Visit Provider Internal Medicine
DX: I10 Essential (primary) hypertension (principal); E78.00 Pure hypercholesterolemia, unspecified; R73.01 Impaired fasting glucose; I42.8 Other cardiomyopathies; D12.6 Benign neoplasm of colon, unspecified

== ENCOUNTER → 2024-08-26 08:46 | Outpatient (BNVA) | payer OTHER, SELFPAY | PROVIDERS: PCP Internal Medicine; Visit Provider Internal Medicine | DX: Z13.89 Encounter for screening for other disorder (principal) ==

== ENCOUNTER 2024-11-09 15:50 | Outpatient (REF) | payer OTHER, SELFPAY ==
--- NOTE | ~2024-11-09 | MM_ITS ---
EXAMINATION: MM SCREENING DIGITAL BREAST TOMOSYNTHESIS, BILATERAL CLINICAL INFORMATION: Screening. Asymptomatic. COMPARISON: Mammography: Comparison is made with available priors TECHNIQUE: Digital breast mammography with tomosynthesis is performed in both the craniocaudal and mediolateral oblique views along with computer-aided detection (CAD). FINDINGS: There are scattered areas of fibroglandular density (ACR BI-RADS breast composition Category b). Left pacemaker overlies and obscures the superior posterior left breast on MLO view. There are no significant masses, abnormal calcifications, or other abnormalities. MM/MM tomosynthesis screening BI IMPRESSION: No mammographic evidence of malignancy. ASSESSMENT: BI-RADS BI-RADS 2 - Benign Findings RECOMMENDATION: Routine annual mammography screening. 1 year F/U This examination should not preclude the clinical evaluation of a suspicious palpable abnormality. This patient's information was entered into a reminder system with a target due date for their next mammogram. Electronically signed by: Chanelle Burgos DO 11/11/2024 12:55 PM EDT
--- OUTSIDE RECORDS SUMMARY | 2024-11-09 16:11 | XMS_ITS | Clinical Summary ---
Author Organization [address] [facility] Address [address] [place] [address] Phone Care Team Providers Care Registered Representative Name Role Phone Physician, Pcp Unknown Primary Care Provider Margareth vailable Encounters Date Type Department Care Team Description 10/21/2024 Lab Requisition [facility] - Main Lab [address] [facility] [place] [address] Yohannes Alfaro MD Encounter for gynecological examination (general) (routine) without abnormal findings from Last 3 Months Social History Tobacco Use Types Packs/Day Years Used Date Smoking Tobacco: Never Assessed Comments Unknown Sex and Gender Information Value Date Recorded Sex Assigned at Not on file Legal Sex Female 7:18 AM EDT Gender Identity Not on file Sexual Orientation Not on file Plan of Treatment Health Maintenance Due Date Last Done Comments Breast Cancer Screening 1965 DTaP,Tdap,and Td Vaccines (1 - Tdap) 11/04/1982 Pneumococcal Vaccine: 50+ Ye ars (1 of 1 - PCV) 11/04/2013 Zoster Vaccines (1 of 2) 11/04/2013 COVID-19 Vaccine ( - 2023-2 5 season) 2023 Depression Screening 03/25/2024 Colorectal Cancer Screening: Colonoscopy 10/21/2024 HIV Screening 10/21/2024 Hepatitis C Screening 10/21/2024 Social Influencers of Health Screening 10/21/2024 Influenza Vaccine (#1) 2024 Cervical Cancer Screening: P ap Smear 10/21/2027 10/20/2024 RSV Immunization Adult Patie nts (1 - 1-dose 75+ series) 11/04/2038 HIB Vaccines Aged Out No longer eligi ble based on patient's age to complete this topic HPV Vaccines Aged Out No longer eligi ble based on patient's age to complete this topic Hepatitis A Vaccines Aged Out No long er eligible based on patient's age to complete this topic Hepatitis B Vaccines Aged Out No long er eligible based on patient's age to complete this topic IPV Vaccines Aged Out No longer eligi ble based on patient's age to complete this topic MMR Vaccines Aged Out No longer eligi ble based on patient's age to complete this topic Meningococcal ACWY Vaccine Aged Out N o longer eligible based on patient's age to complete this topic Meningococcal B Vaccine Aged Out No l onger eligible based on patient's age to complete this topic RSV Immunization Patients Un nicho 20 months Aged Out No longer eligible b ased on patient's age to complete this topic Varicella Vaccines Aged Out No longer eligible based on patient's age to complete this topic Procedures Procedure Name Priority Date/Time Associated Diagnosis Comments PAP SMEAR Routine 10/20/2024 12:00 AM EDT Encounter for gynecological examination (general) (routine) without abnormal findings from Last 3 Months Results * Pap smear (10/20/2024 12:00 AM EDT) Interpretation Negative for intraepithelial lesion or malignancy 10/22/2024 3:07 PM EDT [facility] General Categorization Negative [facility] Other Findings Atrophy 10/22/2024 3:07 PM [facility] Specimen Adequacy Satisfactory for evaluation 10/22[facility]2024 [facility] Pap Methodology Liquid Based Pap Test 10/22/2024 3:07 PM [facility] Disclaimer The Pap test is a screening test which carries an inherent false negative rate. These test results should be correlated with the patient's clinical findings and history. This Pap test was processed using an automated screening system. Technical cytopathology services provided by [facility], at [address] [place] [address], [place] [address] (CLIA # [id number]/Ray Gong MD, Insulation Sprayer.) 10/22/2024 3:07 PM EDT [facility] Console Pap Interpretation Reported 10/22/2024 3:07 PM EDT [facility]) [facility] Brushing/Spatula Cervix uteri structure / Unknown 10/20/2024 10/21/2024 7:31 AM EDT us Yohannes Alfaro MD LAB CYTOLOGY ORDERABLES Final Result [facility] [address] [place] [address], from Last 3 Months Insurance [facility] Care Teams Registered Representative Relationship Specialty Start Date End Date Physician, Pcp Unknown PCP - General 10/21/24
== END 2024-11-09 15:51 | disposition home or self-care (01) ==
LOC: HO.MAMMO 15:50
PROVIDERS: Absent Provider Obstetrics & Gynecology; PCP Internal Medicine; Visit Provider Internal Medicine
DX: Z12.31 Encounter for screening mammogram for malignant neoplasm of breast (principal)
CPT/HCPCS: 77063; 77067

== ENCOUNTER → 2024-11-09 16:15 | Outpatient (BNV) | payer OTHER, SELFPAY | PROVIDERS: Absent Provider Obstetrics & Gynecology; PCP Internal Medicine; Visit Provider Internal Medicine | DX: Z12.31 Encounter for screening mammogram for malignant neoplasm of breast (principal) | CPT/HCPCS: 77063; 77067 ==